=== PATIENT | female | born 1940 | race Asian ===

== ENCOUNTER 2025-05-14 10:16 | Inpatient (IN) | payer MEDICAID, OTHER ==
[~2025-05-14] VITALS: Ht 147.3 cm; Wt 50.9 kg
[2025-05-14] MEDS ORDERED: 0.9% SODIUM CHLORIDE 10 ML SYRINGE IVP PRN (10:30)
[2025-05-14] MEDS: SODIUM CHLORIDE 0.9% 1,500 ML IV ONE (10:44)
[2025-05-14] MEDS: CefTRIAXone 1 GM/DEXTROSE 50 ML IV ONE (10:45)
[2025-05-14 10:49] LABS: COVID AG,FIA SOURCE NASAL SWAB
[2025-05-14 10:49] LABS: PLATELET COUNT (AUTO) 246 K/uL (150-450); RED BLOOD CELL COUNT(AUTO) 4.28 MIL/uL (4.00-5.20); RED CELL DISTRIBUTION WIDTH 13.8 % (11.5-14.5); WHITE BLOOD COUNT (AUTO) 10.6 K/uL (4.5-11.0)
[2025-05-14 11:02] LABS: LACTIC ACID 3.7 mmol/L (0.4-2.0)
[2025-05-14 11:04] LABS: CALCIUM, TOTAL 8.9 mg/dL (8.8-10.5); CREATININE 2.58 mg/dL (0.60-1.30); GLOMERULAR FILTR. RATE CALC 18.0 mL/min (>60); SODIUM SERUM 138.0 mmol/L (136-145); UREA NITROGEN, BLOOD 85.0 mg/dL (7-18)
[2025-05-14 11:05] LABS: GLUCOSE,RANDOM 589.0 mg/dL (70-110)
[2025-05-14 11:06] LABS: BAND NEUTROPHILS % (MANUAL) 15 % (0-5); LYMPHOCYTES % (MANUAL) 8 % (22-44); MONOCYTES % (MANUAL) 4 % (2-9); SEGMENTED NEUTROPHILS % 73 % (40-70)
[2025-05-14 11:07] LABS: RBC MORPHOLOGY COMMENT NORMAL RBC MORPH
[2025-05-14 11:09] LABS: WBC MORPHOLOGY TOXIC GRANULATION
[2025-05-14 11:13] LABS: INFLUENZA TYPE A NEGATIVE FOR TYPE A (NEGATIVE); INFLUENZA TYPE B NEGATIVE FOR TYPE B (NEGATIVE); SARS-COV2 (COVID) ANTIGEN,FIA Negative (Negative)
[2025-05-14 11:22] LABS: ABG BASE EXCESS -3.5 mmol/L (-2.0-3.0); ABG CARBOXYHEMOGLOBIN 0.8 % (0.5-1.5); ABG HCO3 22.2 mmol/L (21.0-28.0); ABG METHEMOGLOBIN 0.3 % (0.0-1.5); ABG OXYGEN CONTENT 14.7 mL/dL (15.0-23.0); ABG OXYGEN SATURATION 90.8 % (94.0-98.0); ABG OXYHEMOGLOBIN 89.8 % (94.0-98.0); ABG PCO2 30 mmHg (32.0-45.0); ABG PH 7.453 (7.350-7.450); ABG TOTAL HEMOGLOBIN 11.6 G/dL (12.0-16.0); FRACTIONATED INSPIRED OXYGEN 32.0 % (21-100.0); PO2, ARTERIAL BG 61.1 mmHg (83.0-108.0); SOURCE, BLOOD GAS ARTERIAL; TEMPERATURE, FAHRENHEIT, BG 99.2 FAHREN (96.0-98.6)
[2025-05-14 11:24] LABS: SITE, BLOOD GAS LFT RADIAL
[2025-05-14 11:25] LABS: ABG A-A DIFF O2 132.0 mmHg (10-20.0); ALLEN TEST, BLOOD GAS Positive; FLOW, BLOOD GAS 3.00 L/min (0.00-15.00); O2 DEVICE,BLOOD GAS CANNULA (ROOM AIR); PATIENT RATE, BG 28.0 min.
[2025-05-14 12:05] LABS: APPEARANCE,URINE HAZY (CLEAR); GLUCOSE, URINE (UA) >=1000 mg/dL (NEGATIVE); LEUKOCYTE ESTERASE ,URINE MODERATE (NEGATIVE); NITRATE,URINE NEGATIVE (NEGATIVE); OCCULT BLOOD,URINE LARGE (NEGATIVE); SPECIFIC GRAVITIY, URINE 1.019 (1.003-1.030)
[2025-05-14 12:07] LABS: SULFOSALICYLIC ACID,URINE 2+ (Negative)
[2025-05-14] MEDS: SODIUM CHLORIDE 0.9% 1,000 ML IV ONE (12:32)
[2025-05-14 13:06] LABS: GLUCOMETER DEV NAME(LOC) ERT.7; GLUCOSE,POINT OF CARE 464 MG/DL (70-110)
[2025-05-14 16:16] VITALS: BP 116/58; PULSE 120; RESP 18; TEMP 100; TEMP 98; O2SAT 96
[2025-05-14] MEDS ORDERED: ONDANSETRON HCL 4 MG/2 ML VIAL IVP PRN (17:00)
[2025-05-14] MEDS ORDERED: DEXTROSE 50%-WATER 25 GM/50 ML SYRINGE IVP PRN (17:00)
[2025-05-14] MEDS ORDERED: BISACODYL 10 MG RECTAL RECTAL SUPPOSITORY PR PRN (17:00)
[2025-05-14] MEDS ORDERED: ZOLPIDEM TARTRATE 5 MG TABLET PO PRN (17:00)
[2025-05-14] MEDS ORDERED: MAGNESIUM HYDROXIDE SUSPENSION 30 ML UDCUP PO PRN (17:00)
[2025-05-14] MEDS ORDERED: INSULIN LISPRO 100 UNITS/ML SQ PRN ×2 (17:00→18:15)
[2025-05-14] MEDS ORDERED: MORPHINE SULFATE 4 MG/ML SYRINGE IVP PRN (17:00)
[2025-05-14] MEDS ORDERED: HYDROCODONE/ACETAMINOPHEN 5-325 MG TABLET PO PRN (17:00)
[2025-05-14] MEDS: POTASSIUM CHL 10 MEQ/WATER 50 ML IV SCH (17:48)
[2025-05-14] MEDS: SODIUM CHLORIDE 0.9% 1,000 ML IV SCH (17:48)
[2025-05-14 20:21] VITALS: BP 123/90; PULSE 133; RESP 20; TEMP 98.6; O2SAT 90
[2025-05-14] MEDS ORDERED: PIPERACILLIN/TAZO 3.375 GM/D5W 50 ML IV SCH (23:15)
[2025-05-14] MEDS: ACETAMINOPHEN 650 MG RECTAL SUPPOSITORY PR PRN (23:18)
[2025-05-14 23:35] LABS: ABG BASE EXCESS -4.8 mmol/L (-2.0-3.0); ABG CARBOXYHEMOGLOBIN 0.3 % (0.5-1.5); ABG HCO3 21.7 mmol/L (21.0-28.0); ABG METHEMOGLOBIN 0.3 % (0.0-1.5); ABG OXYGEN CONTENT 16.0 mL/dL (15.0-23.0); ABG OXYGEN SATURATION 98.2 % (94.0-98.0); ABG OXYHEMOGLOBIN 97.6 % (94.0-98.0); ABG PCO2 24 mmHg (32.0-45.0); ABG PH 7.501 (7.350-7.450); ABG TOTAL HEMOGLOBIN 11.5 G/dL (12.0-16.0); ALLEN TEST, BLOOD GAS Positive; FLOW, BLOOD GAS 10.00 L/min (0.00-15.00); FRACTIONATED INSPIRED OXYGEN 60.0 % (21-100.0); O2 DEVICE,BLOOD GAS OXYMIZER (ROOM AIR); PO2, ARTERIAL BG 112.6 mmHg (83.0-108.0); SITE, BLOOD GAS LFT RADIAL; SOURCE, BLOOD GAS ARTERIAL; TEMPERATURE, FAHRENHEIT, BG 98.6 FAHREN (96.0-98.6)
[2025-05-14] MEDS: VANCOMYCIN 1GM/WATER(PEG/NADA) 200 ML IV ONE (23:37)
[2025-05-14] MEDS: PIPERACILLIN SODIUM/TAZOBACTAM 2.25 GM in DEXTROSE 5%-WATER 50 ML IV SCH (23:52)
[2025-05-15] VITALS (7 sets, daily range): BP systolic 89–117; BP diastolic 43–72; PULSE 91–132; RESP 14–36; TEMP 98.6–99.7; O2SAT 92–100
[2025-05-15] MEDS: HEPARIN SODIUM,PORCINE 5,000 UNITS/ML VIAL SQ SCH (00:13)
[2025-05-15] MEDS ORDERED: VANCOMYCIN 1GM/WATER(PEG/NADA) 200 ML IV PRN (00:45)
[2025-05-15] MEDS: AMIODARONE HCL 150 MG in DEXTROSE 5%-WATER 97 ML IV ONE (01:13)
[2025-05-15] MEDS: AMIODARONE HCL 360 MG in DEXTROSE 5%-WATER 242.8 ML IV ONE (01:41)
[2025-05-15 02:10] LABS: GLUCOMETER DEV NAME(LOC) 5S.2D; GLUCOSE,POINT OF CARE 376 MG/DL (70-110)
[2025-05-15 02:10] LABS: GLUCOMETER DEV NAME(LOC) 5S.2D; GLUCOSE,POINT OF CARE 262 MG/DL (70-110)
[2025-05-15 02:10] LABS: GLUCOMETER DEV NAME(LOC) 5S.2D; GLUCOSE,POINT OF CARE 413 MG/DL (70-110)
[2025-05-15 04:58] LABS: PLATELET COUNT (AUTO) 198 K/uL (150-450); RED BLOOD CELL COUNT(AUTO) 3.85 MIL/uL (4.00-5.20); RED CELL DISTRIBUTION WIDTH 14.0 % (11.5-14.5); WHITE BLOOD COUNT (AUTO) 12.8 K/uL (4.5-11.0)
[2025-05-15 05:05] LABS: CALCIUM, TOTAL 8.7 mg/dL (8.8-10.5); CREATININE 1.66 mg/dL (0.60-1.30); GLOMERULAR FILTR. RATE CALC 29.0 mL/min (>60); SODIUM SERUM 145.0 mmol/L (136-145); UREA NITROGEN, BLOOD 74.0 mg/dL (7-18)
[2025-05-15 05:07] LABS: GLUCOSE,RANDOM 422.0 mg/dL (70-110)
[2025-05-15] MEDS: INSULIN LISPRO 100 UNITS/ML SQ PRN ×2 (05:11→17:32)
[2025-05-15 05:42] LABS: BAND NEUTROPHILS % (MANUAL) 18 % (0-5); LYMPHOCYTES % (MANUAL) 10 % (22-44); MONOCYTES % (MANUAL) 9 % (2-9); SEGMENTED NEUTROPHILS % 63 % (40-70)
[2025-05-15] MEDS: AMIODARONE HCL 540 MG in DEXTROSE 5%-WATER 250 ML IV ONE (08:25)
[2025-05-15] MEDS: PANTOPRAZOLE SODIUM 40 MG DR TABLET PO SCH (09:00)
[2025-05-15 09:41] LABS: GLUCOMETER DEV NAME(LOC) 5S.2D; GLUCOSE,POINT OF CARE 355 MG/DL (70-110)
[2025-05-15 09:41] LABS: GLUCOMETER DEV NAME(LOC) 5S.2D; GLUCOSE,POINT OF CARE 316 MG/DL (70-110)
[2025-05-15] MEDS ORDERED: CefTRIAXone 1 GM/DEXTROSE 50 ML IV SCH (10:00)
[2025-05-15] MEDS ORDERED: PHENYLEPHRINE 200 MG/D5%-WATER 250 ML IV PRN (11:00)
[2025-05-15] MEDS ORDERED: NALOXONE HCL 1 MG/ML 2 ML SYRINGE IVP PRN (11:00)
[2025-05-15] MEDS: AMIODARONE HCL 200 MG TABLET PO SCH (11:15)
[2025-05-15] MEDS: MORPHINE SULFATE 4 MG/ML SYRINGE IVP PRN (12:46)
[2025-05-15 13:36] LABS: ABG BASE EXCESS -4.9 mmol/L (-2.0-3.0); ABG CARBOXYHEMOGLOBIN 0.4 % (0.5-1.5); ABG HCO3 21.3 mmol/L (21.0-28.0); ABG METHEMOGLOBIN 0.3 % (0.0-1.5); ABG OXYGEN CONTENT 15.3 mL/dL (15.0-23.0); ABG OXYGEN SATURATION 94.9 % (94.0-98.0); ABG OXYHEMOGLOBIN 94.2 % (94.0-98.0); ABG PCO2 28 mmHg (32.0-45.0); ABG PH 7.449 (7.350-7.450); ABG TOTAL HEMOGLOBIN 11.5 G/dL (12.0-16.0); FLOW, BLOOD GAS 63.00 L/min (0.00-15.00); FRACTIONATED INSPIRED OXYGEN 44.0 % (21-100.0); O2 DEVICE,BLOOD GAS CANNULA (ROOM AIR); PATIENT RATE, BG 34.0 min.; PO2, ARTERIAL BG 75.8 mmHg (83.0-108.0); SITE, BLOOD GAS RT BRACHIAL; SOURCE, BLOOD GAS ARTERIAL; TEMPERATURE, FAHRENHEIT, BG 99.0 FAHREN (96.0-98.6)
[2025-05-15] MEDS: DIGOXIN 250 MCG/ML 2 ML AMP IVP ONE (14:18)
[2025-05-15] MEDS ORDERED: GLUCAGON,HUMAN RECOMBINANT 1 MG VIAL IM PRN (14:45)
[2025-05-15] MEDS: LORazepam 2 MG/ML VIAL IVP ONE (15:02)
[2025-05-15] MEDS: RINGERS SOLUTION,LACTATED 1,000 ML IV SCH (15:02)
[2025-05-15] MEDS ORDERED: SODIUM CHLORIDE 0.9% 250 ML IV ONE (17:36)
[2025-05-15 18:25] LABS: GLUCOMETER DEV NAME(LOC) ICUN.6; GLUCOSE,POINT OF CARE 366 MG/DL (70-110)
[2025-05-15] MEDS ORDERED: RINGERS SOLUTION,LACTATED 250 ML IV PRN (20:00)
[2025-05-15 20:54] LABS: ASPARTATE AMINOTRANSFERASE 57.0 U/L (15-37); TOTAL PROTEIN, SERUM 6.4 g/dL (6.4-8.2)
[2025-05-15] MEDS ORDERED: DEXTROSE 50%-WATER 25 GM/50 ML SYRINGE IVP PRN (22:45)
[2025-05-16] VITALS (11 sets, daily range): BP systolic 101–159; BP diastolic 49–72; PULSE 96–112; RESP 18–28; TEMP 97.5–99.7; O2SAT 93–100
[2025-05-16] MEDS: INSULIN LISPRO 100 UNITS/ML SQ PRN (00:07)
[2025-05-16] MEDS: INSULIN GLARGINE,HUM.REC.ANLOG 100 UNITS/ML SQ SCH (00:08)
[2025-05-16] MEDS ORDERED: AMIODARONE HCL 750 MG in DEXTROSE 5%-WATER 485 ML IV SCH (00:45)
[2025-05-16 04:20] LABS: GLUCOMETER DEV NAME(LOC) ICU.S7; GLUCOSE,POINT OF CARE 285 MG/DL (70-110)
[2025-05-16 05:56] LABS: GLUCOMETER DEV NAME(LOC) ICUN.6; GLUCOSE,POINT OF CARE 223 MG/DL (70-110)
[2025-05-16 07:28] LABS: PLATELET COUNT (AUTO) 181 K/uL (150-450); RED BLOOD CELL COUNT(AUTO) 3.91 MIL/uL (4.00-5.20); RED CELL DISTRIBUTION WIDTH 13.9 % (11.5-14.5); WHITE BLOOD COUNT (AUTO) 11.3 K/uL (4.5-11.0)
[2025-05-16 07:38] LABS: PHOSPHORUS 1.7 mg/dL (2.5-4.9)
[2025-05-16 07:42] LABS: CALCIUM, TOTAL 8.9 mg/dL (8.8-10.5); CREATININE 1.19 mg/dL (0.60-1.30); GLOMERULAR FILTR. RATE CALC 43.0 mL/min (>60); GLUCOSE,RANDOM 179.0 mg/dL (70-110); UREA NITROGEN, BLOOD 53.0 mg/dL (7-18)
[2025-05-16 07:47] LABS: SODIUM SERUM 154.0 mmol/L (136-145)
[2025-05-16] MEDS: ALBUTEROL SULFATE 2.5 MG/0.5 ML NEB SOLUTION NEB PRN (08:17)
[2025-05-16] MEDS: IPRATROPIUM BROMIDE 0.5 MG/2.5 ML NEB SOLUTION NEB PRN (08:17)
[2025-05-16] MEDS: MIDODRINE HCL 2.5 MG TABLET PO SCH (08:40)
[2025-05-16] MEDS: VANCOMYCIN 750 MG/WATER(PEG) 150 ML IV SCH (08:40)
[2025-05-16] MEDS ORDERED: MAGNESIUM SULFATE 2 GM/WATER 50 ML IV PRN (10:45)
[2025-05-16] MEDS ORDERED: MAGNESIUM SULFATE 4 GM/WATER 100 ML IV PRN (10:45)
[2025-05-16] MEDS ORDERED: MAGNESIUM OXIDE 400 MG TABLET PO PRN (10:45)
[2025-05-16] MEDS: PIPERACILLIN SODIUM/TAZOBACTAM 2.25 GM in DEXTROSE 5%-WATER 50 ML IV SCH (11:38)
[2025-05-16] MEDS: DEXTROSE 5%-WATER 1,000 ML IV SCH (11:39)
[2025-05-16] MEDS: POTASSIUM CHL 10 MEQ/WATER 50 ML IV PRN (11:39)
[2025-05-16] MEDS: POTASSIUM PHOSPHATE,MONOBASIC 500 MG TABLET PO ONE (12:06)
[2025-05-16] MEDS: POTASSIUM CHL 10 MEQ/WATER 50 ML IV SCH (16:30)
[2025-05-17] VITALS (13 sets, daily range): BP systolic 109–162; BP diastolic 53–82; PULSE 91–119; RESP 17–48; TEMP 97.5–98.4; O2SAT 90–100
[2025-05-17 07:08] LABS: CALCIUM, TOTAL 8.9 mg/dL (8.8-10.5); CREATININE 1.37 mg/dL (0.60-1.30); GLOMERULAR FILTR. RATE CALC 37.0 mL/min (>60); GLUCOSE,RANDOM 245.0 mg/dL (70-110); SODIUM SERUM 156.0 mmol/L (136-145); UREA NITROGEN, BLOOD 47.0 mg/dL (7-18)
[2025-05-17 07:34] LABS: % IRON SATURATION 23.9 % (22-44); IRON, SERUM 22.0 mcg/dL (50-175)
[2025-05-17 07:37] LABS: PHOSPHORUS 3.4 mg/dL (2.5-4.9)
[2025-05-17] MEDS ORDERED: ETOMIDATE 2 MG/ML 10 ML VIAL IV ONE (08:36)
[2025-05-17] MEDS ORDERED: ROCURONIUM BROMIDE 10 MG/ML 5 ML VIAL IV ONE (08:36)
[2025-05-17] MEDS: POTASSIUM CHL 10 MEQ/WATER 50 ML IV SCH (11:23)
[2025-05-17] MEDS: NAFCILLIN SODIUM 2 GM in DEXTROSE 5%-WATER 100 ML IV SCH (16:36)
[2025-05-18] VITALS (16 sets, daily range): BP systolic 85–159; BP diastolic 35–74; PULSE 66–131; RESP 22–52; TEMP 98.1–99.7; O2SAT 93–100
[2025-05-18] MEDS: ETOMIDATE 2 MG/ML 10 ML VIAL IVP ONE (00:59)
[2025-05-18] MEDS: ROCURONIUM BROMIDE 10 MG/ML 5 ML VIAL IVP ONE (01:01)
[2025-05-18] MEDS ORDERED: SODIUM CHLORIDE 0.9% 250 ML IV ONE (01:52)
[2025-05-18] MEDS ORDERED: PROPOFOL 1000 MG/ISO-OSM 100 ML ONE (01:57)
[2025-05-18] MEDS: FentaNYL CIT 1000MCG/0.9% NACL 100 ML IV PRN (02:19)
[2025-05-18] MEDS: PROPOFOL 1000 MG/ISO-OSM 100 ML IV PRN (02:20)
[2025-05-18 02:26] LABS: ABG BASE EXCESS -4.0 mmol/L (-2.0-3.0); ABG CARBOXYHEMOGLOBIN 0.3 % (0.5-1.5); ABG HCO3 21.4 mmol/L (21.0-28.0); ABG METHEMOGLOBIN 0.0 % (0.0-1.5); ABG OXYGEN CONTENT 16.3 mL/dL (15.0-23.0); ABG OXYGEN SATURATION 99.6 % (94.0-98.0); ABG OXYHEMOGLOBIN 99.3 % (94.0-98.0); ABG PCO2 41 mmHg (32.0-45.0); ABG PH 7.346 (7.350-7.450); ABG TOTAL HEMOGLOBIN 10.9 G/dL (12.0-16.0); FRACTIONATED INSPIRED OXYGEN 100.0 % (21-100.0); SOURCE, BLOOD GAS ARTERIAL; TEMPERATURE, FAHRENHEIT, BG 98.3 FAHREN (96.0-98.6)
[2025-05-18 02:27] LABS: ALLEN TEST, BLOOD GAS Positive; PO2, ARTERIAL BG 408.7 mmHg (83.0-108.0); SITE, BLOOD GAS LFT BRACHIAL
[2025-05-18 02:28] LABS: ABG A-A DIFF O2 264.3 mmHg (10-20.0); O2 DEVICE,BLOOD GAS VENT (ROOM AIR); PEEP,BG 5 cm H2O; SET RATE, BG 22.0 min.; VT, ABG 350 ml
[2025-05-18 05:41] LABS: GLUCOMETER DEV NAME(LOC) ICUN.6; GLUCOSE,POINT OF CARE 228 MG/DL (70-110)
[2025-05-18 05:54] LABS: PLATELET COUNT (AUTO) 164 K/uL (150-450); RED BLOOD CELL COUNT(AUTO) 3.81 MIL/uL (4.00-5.20); RED CELL DISTRIBUTION WIDTH 14.7 % (11.5-14.5); WHITE BLOOD COUNT (AUTO) 9.6 K/uL (4.5-11.0)
[2025-05-18 06:04] LABS: ASPARTATE AMINOTRANSFERASE 33.0 U/L (15-37); CALCIUM, TOTAL 8.1 mg/dL (8.8-10.5); CREATININE 1.24 mg/dL (0.60-1.30); GLOMERULAR FILTR. RATE CALC 41.0 mL/min (>60); GLUCOSE,RANDOM 257.0 mg/dL (70-110); PHOSPHORUS 5.9 mg/dL (2.5-4.9); SODIUM SERUM 155.0 mmol/L (136-145); TOTAL PROTEIN, SERUM 6.2 g/dL (6.4-8.2); UREA NITROGEN, BLOOD 48.0 mg/dL (7-18)
[2025-05-18] MEDS ORDERED: DEXMEDETOMIDINE 400 MCG/NS 100 ML IV PRN (09:45)
[2025-05-18] MEDS: RINGERS SOLUTION,LACTATED 500 ML IV ONE ×2 (09:58→19:38)
[2025-05-18] MEDS: DEXMEDETOMIDINE 400 MCG/NS 100 ML IV PRN (09:59)
[2025-05-18 10:43] LABS: GLUCOMETER DEV NAME(LOC) 5N.1D; GLUCOSE,POINT OF CARE 233 MG/DL (70-110)
[2025-05-18 10:43] LABS: GLUCOMETER DEV NAME(LOC) 5N.1D; GLUCOSE,POINT OF CARE 254 MG/DL (70-110)
[2025-05-18 10:43] LABS: GLUCOMETER DEV NAME(LOC) 5N.1D; GLUCOSE,POINT OF CARE 269 MG/DL (70-110)
[2025-05-18 10:46] LABS: GLUCOMETER DEV NAME(LOC) 5S.1D; GLUCOSE,POINT OF CARE 229 MG/DL (70-110)
[2025-05-18 10:46] LABS: GLUCOMETER DEV NAME(LOC) 5S.1D; GLUCOSE,POINT OF CARE 266 MG/DL (70-110)
[2025-05-18 10:46] LABS: GLUCOMETER DEV NAME(LOC) 5S.1D; GLUCOSE,POINT OF CARE 232 MG/DL (70-110)
[2025-05-18] MEDS: DEXTROSE 50%-WATER 25 GM in WATER FOR INJECTION,STERILE 950 ML IV SCH (13:32)
[2025-05-18 14:06] LABS: GLUCOMETER DEV NAME(LOC) ICU.S7; GLUCOSE,POINT OF CARE 223 MG/DL (70-110)
[2025-05-18 18:40] LABS: GLUCOMETER DEV NAME(LOC) ICU.S7; GLUCOSE,POINT OF CARE 138 MG/DL (70-110)
[2025-05-18] MEDS: NOREPINEPHRINE 8 MG/0.9 % NACL 250 ML IV PRN (21:09)
[2025-05-18 21:30] LABS: GLUCOMETER DEV NAME(LOC) ICU.S7; GLUCOSE,POINT OF CARE 113 MG/DL (70-110)
[2025-05-19] VITALS (14 sets, daily range): BP systolic 95–146; BP diastolic 42–68; PULSE 70–84; RESP 21–27; TEMP 98.2–100.2; O2SAT 99–100
[2025-05-19 03:36] LABS: GLUCOMETER DEV NAME(LOC) ICUN.6; GLUCOSE,POINT OF CARE 147 MG/DL (70-110)
[2025-05-19 06:22] LABS: ASPARTATE AMINOTRANSFERASE 36.0 U/L (15-37); C-REACTIVE PROTEIN QUANT 13.03 mg/dL (0.00-0.30); CALCIUM, TOTAL 7.0 mg/dL (8.8-10.5); CREATININE 2.01 mg/dL (0.60-1.30); GLOMERULAR FILTR. RATE CALC 24.0 mL/min (>60); GLUCOSE,RANDOM 173.0 mg/dL (70-110); PHOSPHORUS 5.1 mg/dL (2.5-4.9); SODIUM SERUM 142.0 mmol/L (136-145); TOTAL PROTEIN, SERUM 5.6 g/dL (6.4-8.2); UREA NITROGEN, BLOOD 59.0 mg/dL (7-18)
[2025-05-19 07:46] LABS: GLUCOMETER DEV NAME(LOC) ICU.S7; GLUCOSE,POINT OF CARE 158 MG/DL (70-110)
[2025-05-19] MEDS: ACETAMINOPHEN 325 MG TABLET PO PRN (07:58)
[2025-05-19] MEDS ORDERED: RINGERS SOLUTION,LACTATED 1,000 ML IV SCH (10:15)
[2025-05-19] MEDS: ALBUMIN HUMAN 25%-25GM/100ML 100 ML IV SCH (12:24)
[2025-05-19] MEDS ORDERED: SODIUM CHLORIDE 0.9% 500 ML IV ONE (13:59)
[2025-05-19 18:01] LABS: GLUCOMETER DEV NAME(LOC) ICUN.6; GLUCOSE,POINT OF CARE 144 MG/DL (70-110)
[2025-05-19] MEDS: PHENYLEPHRINE 200 MG/D5%-WATER 250 ML IV PRN (18:53)
[2025-05-19 23:50] LABS: GLUCOMETER DEV NAME(LOC) ICUN.6; GLUCOSE,POINT OF CARE 170 MG/DL (70-110)
[2025-05-19 23:50] LABS: GLUCOMETER DEV NAME(LOC) ICUN.6; GLUCOSE,POINT OF CARE 156 MG/DL (70-110)
[2025-05-20] VITALS (14 sets, daily range): BP systolic 110–143; BP diastolic 35–75; PULSE 71–81; RESP 21–25; TEMP 96.9–99.4; O2SAT 100
[2025-05-20 06:20] LABS: PLATELET COUNT (AUTO) 239 K/uL (150-450); RED BLOOD CELL COUNT(AUTO) 3.56 MIL/uL (4.00-5.20); RED CELL DISTRIBUTION WIDTH 14.7 % (11.5-14.5); WHITE BLOOD COUNT (AUTO) 20.9 K/uL (4.5-11.0)
[2025-05-20 06:30] LABS: GLUCOMETER DEV NAME(LOC) ICUN.6; GLUCOSE,POINT OF CARE 161 MG/DL (70-110)
[2025-05-20 06:35] LABS: ASPARTATE AMINOTRANSFERASE 23.0 U/L (15-37); CALCIUM, TOTAL 6.9 mg/dL (8.8-10.5); CREATININE 2.41 mg/dL (0.60-1.30); GLOMERULAR FILTR. RATE CALC 19.0 mL/min (>60); GLUCOSE,RANDOM 183.0 mg/dL (70-110); SODIUM SERUM 138.0 mmol/L (136-145); TOTAL PROTEIN, SERUM 6.2 g/dL (6.4-8.2); UREA NITROGEN, BLOOD 60.0 mg/dL (7-18)
[2025-05-20] MEDS ORDERED: RINGERS SOLUTION,LACTATED 1,000 ML IV SCH (10:30)
[2025-05-20] MEDS ORDERED: ALBUMIN HUMAN 25%-25GM/100ML 100 ML IV SCH (11:00)
[2025-05-20] MEDS ORDERED: SODIUM CHLORIDE 0.9% 250 ML IV ONE (11:49)
[2025-05-20] MEDS: SODIUM CHLORIDE 0.9% 1,000 ML IV SCH (11:51)
[2025-05-20] MEDS: VASOPRESSIN 40 UNITS in DEXTROSE 5%-WATER 98 ML IV PRN (12:16)
[2025-05-20] MEDS: POTASSIUM CHL 10 MEQ/WATER 50 ML IV SCH (12:41)
[2025-05-20 13:01] LABS: GLUCOMETER DEV NAME(LOC) ICU.S7; GLUCOSE,POINT OF CARE 153 MG/DL (70-110)
[2025-05-20 17:45] LABS: GLUCOMETER DEV NAME(LOC) ICU.S7; GLUCOSE,POINT OF CARE 179 MG/DL (70-110)
[2025-05-20 21:36] LABS: GLUCOMETER DEV NAME(LOC) ICUN.6; GLUCOSE,POINT OF CARE 178 MG/DL (70-110)
[2025-05-21] VITALS (12 sets, daily range): BP systolic 120–148; BP diastolic 27–38; PULSE 65–91; RESP 18–31; TEMP 98.2–99.4; O2SAT 99–100
[2025-05-21 00:20] LABS: GLUCOMETER DEV NAME(LOC) ICUN.6; GLUCOSE,POINT OF CARE 183 MG/DL (70-110)
[2025-05-21 05:31] LABS: PLATELET COUNT (AUTO) 185 K/uL (150-450); RED BLOOD CELL COUNT(AUTO) 2.96 MIL/uL (4.00-5.20); RED CELL DISTRIBUTION WIDTH 14.7 % (11.5-14.5); WHITE BLOOD COUNT (AUTO) 16.2 K/uL (4.5-11.0)
[2025-05-21 05:53] LABS: ASPARTATE AMINOTRANSFERASE 17.0 U/L (15-37); C-REACTIVE PROTEIN QUANT 14.91 mg/dL (0.00-0.30); CALCIUM, TOTAL 6.7 mg/dL (8.8-10.5); CREATININE 2.6 mg/dL (0.60-1.30); GLOMERULAR FILTR. RATE CALC 17.0 mL/min (>60); GLUCOSE,RANDOM 223.0 mg/dL (70-110); SODIUM SERUM 138.0 mmol/L (136-145); TOTAL PROTEIN, SERUM 6.0 g/dL (6.4-8.2); UREA NITROGEN, BLOOD 54.0 mg/dL (7-18)
[2025-05-21 06:30] LABS: GLUCOMETER DEV NAME(LOC) ICU.S7; GLUCOSE,POINT OF CARE 188 MG/DL (70-110)
[2025-05-21 12:40] LABS: GLUCOMETER DEV NAME(LOC) ICUN.6; GLUCOSE,POINT OF CARE 210 MG/DL (70-110)
[2025-05-21 19:15] LABS: GLUCOMETER DEV NAME(LOC) ICU.S7; GLUCOSE,POINT OF CARE 184 MG/DL (70-110)
[2025-05-21 20:26] LABS: GLUCOMETER DEV NAME(LOC) ICU.S7; GLUCOSE,POINT OF CARE 155 MG/DL (70-110)
[2025-05-21] MEDS ORDERED: SODIUM CHLORIDE 0.9% 250 ML IV ONE (23:51)
[2025-05-22] VITALS (14 sets, daily range): BP systolic 87–138; BP diastolic 33–60; PULSE 73–90; RESP 18–27; TEMP 96.9–98.9; O2SAT 97–100
[2025-05-22 05:39] LABS: PLATELET COUNT (AUTO) 258 K/uL (150-450); RED BLOOD CELL COUNT(AUTO) 3.31 MIL/uL (4.00-5.20); RED CELL DISTRIBUTION WIDTH 15.2 % (11.5-14.5); WHITE BLOOD COUNT (AUTO) 16.3 K/uL (4.5-11.0)
[2025-05-22 05:53] LABS: ASPARTATE AMINOTRANSFERASE 18 U/L (15-37); CALCIUM, TOTAL 6.8 mg/dL (8.8-10.5); CREATININE 2.27 mg/dL (0.60-1.30); GLOMERULAR FILTR. RATE CALC 20 mL/min (>60); GLUCOSE,RANDOM 240 mg/dL (70-110); SODIUM SERUM 138 mmol/L (136-145); TOTAL PROTEIN, SERUM 5.7 g/dL (6.4-8.2); UREA NITROGEN, BLOOD 48 mg/dL (7-18)
[2025-05-22 06:13] LABS: LACTIC ACID 0.6 mmol/L (0.4-2.0)
[2025-05-22 06:35] LABS: GLUCOMETER DEV NAME(LOC) ICU.S7; GLUCOSE,POINT OF CARE 189 MG/DL (70-110)
[2025-05-22] MEDS: FUROSEMIDE 40 MG/4 ML VIAL IVP ONE (11:18)
[2025-05-22 16:20] LABS: GLUCOMETER DEV NAME(LOC) ICU.S7; GLUCOSE,POINT OF CARE 195 MG/DL (70-110)
[2025-05-22 19:05] LABS: GLUCOMETER DEV NAME(LOC) ICU.S7; GLUCOSE,POINT OF CARE 152 MG/DL (70-110)
[2025-05-22] MEDS: FUROSEMIDE 40 MG/4 ML VIAL IVP SCH (20:44)
[2025-05-23] VITALS (16 sets, daily range): BP systolic 105–134; BP diastolic 56–64; PULSE 73–106; RESP 18–27; TEMP 98.5–99.4; O2SAT 98–100
[2025-05-23 05:36] LABS: GLUCOMETER DEV NAME(LOC) ICUN.6; GLUCOSE,POINT OF CARE 204 MG/DL (70-110)
[2025-05-23 06:10] LABS: PLATELET COUNT (AUTO) 231 K/uL (150-450); RED BLOOD CELL COUNT(AUTO) 2.80 MIL/uL (4.00-5.20); RED CELL DISTRIBUTION WIDTH 15.0 % (11.5-14.5); WHITE BLOOD COUNT (AUTO) 14.8 K/uL (4.5-11.0)
[2025-05-23 06:20] LABS: ASPARTATE AMINOTRANSFERASE 20.0 U/L (15-37); CALCIUM, TOTAL 7.7 mg/dL (8.8-10.5); CREATININE 2.22 mg/dL (0.60-1.30); GLOMERULAR FILTR. RATE CALC 21.0 mL/min (>60); GLUCOSE,RANDOM 229.0 mg/dL (70-110); SODIUM SERUM 138.0 mmol/L (136-145); TOTAL PROTEIN, SERUM 5.9 g/dL (6.4-8.2); UREA NITROGEN, BLOOD 43.0 mg/dL (7-18)
[2025-05-23] MEDS ORDERED: SODIUM CHLORIDE 0.9% 250 ML IV ONE (09:50)
[2025-05-23] MEDS: POTASSIUM CHL 10 MEQ/WATER 50 ML IV SCH (13:50)
[2025-05-23] MEDS: MIDODRINE HCL 5 MG TABLET PO SCH (16:15)
[2025-05-23 19:46] LABS: GLUCOMETER DEV NAME(LOC) ICUN.6; GLUCOSE,POINT OF CARE 203 MG/DL (70-110)
[2025-05-23 19:46] LABS: GLUCOMETER DEV NAME(LOC) ICU.S7; GLUCOSE,POINT OF CARE 173 MG/DL (70-110)
[2025-05-23 22:11] LABS: GLUCOMETER DEV NAME(LOC) ICU.S7; GLUCOSE,POINT OF CARE 166 MG/DL (70-110)
[2025-05-24] VITALS (15 sets, daily range): BP systolic 106–138; BP diastolic 49–69; PULSE 83–115; RESP 16–29; TEMP 99–99.7; O2SAT 99–100
[2025-05-24 00:56] LABS: GLUCOMETER DEV NAME(LOC) ICU.S7; GLUCOSE,POINT OF CARE 206 MG/DL (70-110)
[2025-05-24 06:17] LABS: PLATELET COUNT (AUTO) 289 K/uL (150-450); RED BLOOD CELL COUNT(AUTO) 2.69 MIL/uL (4.00-5.20); RED CELL DISTRIBUTION WIDTH 15.3 % (11.5-14.5); WHITE BLOOD COUNT (AUTO) 13.3 K/uL (4.5-11.0)
[2025-05-24 06:26] LABS: GLUCOMETER DEV NAME(LOC) ICUN.6; GLUCOSE,POINT OF CARE 156 MG/DL (70-110)
[2025-05-24 06:32] LABS: ASPARTATE AMINOTRANSFERASE 15.0 U/L (15-37); CALCIUM, TOTAL 8.5 mg/dL (8.8-10.5); CREATININE 2.22 mg/dL (0.60-1.30); GLOMERULAR FILTR. RATE CALC 21.0 mL/min (>60); GLUCOSE,RANDOM 184.0 mg/dL (70-110); SODIUM SERUM 138.0 mmol/L (136-145); TOTAL PROTEIN, SERUM 6.3 g/dL (6.4-8.2); UREA NITROGEN, BLOOD 44.0 mg/dL (7-18)
[2025-05-24 11:15] LABS: ABG BASE EXCESS -4.7 mmol/L (-2.0-3.0); ABG CARBOXYHEMOGLOBIN 0.4 % (0.5-1.5); ABG HCO3 21.0 mmol/L (21.0-28.0); ABG METHEMOGLOBIN 0.3 % (0.0-1.5); ABG OXYGEN CONTENT 13.7 mL/dL (15.0-23.0); ABG OXYGEN SATURATION 93.1 % (94.0-98.0); ABG OXYHEMOGLOBIN 92.4 % (94.0-98.0); ABG PCO2 35 mmHg (32.0-45.0); ABG PH 7.387 (7.350-7.450); ABG TOTAL HEMOGLOBIN 10.5 G/dL (12.0-16.0); ALLEN TEST, BLOOD GAS Positive; FRACTIONATED INSPIRED OXYGEN 30.0 % (21-100.0); PO2, ARTERIAL BG 63.8 mmHg (83.0-108.0); SITE, BLOOD GAS RT RADIAL; SOURCE, BLOOD GAS ARTERIAL; TEMPERATURE, FAHRENHEIT, BG 98.9 FAHREN (96.0-98.6)
[2025-05-24 11:16] LABS: ABG A-A DIFF O2 109.4 mmHg (10-20.0); O2 DEVICE,BLOOD GAS VENTILATOR (ROOM AIR); PEEP,BG 0 cm H2O; PRESSURE SUPPORT, BG 8 cm H2O; SPONTANEOUS VT, BG 542 ml; VENT MODE, BG CPAP (ROOM AIR)
[2025-05-24 16:56] LABS: GLUCOMETER DEV NAME(LOC) ICUN.6; GLUCOSE,POINT OF CARE 157 MG/DL (70-110)
[2025-05-24] MEDS: POTASSIUM CHLORIDE 10% 40 MEQ/30 ML LIQUID UDCUP PO ONE (17:26)
[2025-05-24 20:00] LABS: GLUCOMETER DEV NAME(LOC) ICU.S7; GLUCOSE,POINT OF CARE 199 MG/DL (70-110)
[2025-05-24 20:46] LABS: GLUCOMETER DEV NAME(LOC) ICU.S7; GLUCOSE,POINT OF CARE 175 MG/DL (70-110)
[2025-05-24] MEDS ORDERED: SODIUM CHLORIDE 0.9% 250 ML IV ONE (23:52)
[2025-05-25] VITALS (15 sets, daily range): BP systolic 117–161; BP diastolic 57–75; PULSE 88–116; RESP 21–29; TEMP 97–99.3; O2SAT 96–100
[2025-05-25 05:21] LABS: GLUCOMETER DEV NAME(LOC) ICUN.6; GLUCOSE,POINT OF CARE 152 MG/DL (70-110)
[2025-05-25 05:50] LABS: GLUCOMETER DEV NAME(LOC) ICUN.6; GLUCOSE,POINT OF CARE 156 MG/DL (70-110)
[2025-05-25 06:06] LABS: PLATELET COUNT (AUTO) 319 K/uL (150-450); RED BLOOD CELL COUNT(AUTO) 2.63 MIL/uL (4.00-5.20); RED CELL DISTRIBUTION WIDTH 15.1 % (11.5-14.5); WHITE BLOOD COUNT (AUTO) 13.2 K/uL (4.5-11.0)
[2025-05-25 06:19] LABS: CREATININE 2.25 mg/dL (0.60-1.30); GLOMERULAR FILTR. RATE CALC 21.0 mL/min (>60); GLUCOSE,RANDOM 197.0 mg/dL (70-110); SODIUM SERUM 138.0 mmol/L (136-145); UREA NITROGEN, BLOOD 45.0 mg/dL (7-18)
[2025-05-25 06:20] LABS: ASPARTATE AMINOTRANSFERASE 16.0 U/L (15-37); CALCIUM, TOTAL 8.7 mg/dL (8.8-10.5); TOTAL PROTEIN, SERUM 6.4 g/dL (6.4-8.2)
[2025-05-25] MEDS: POTASSIUM CHL 10 MEQ/WATER 50 ML IV ONE (09:22)
[2025-05-25 10:18] LABS: ABG BASE EXCESS -2.8 mmol/L (-2.0-3.0); ABG CARBOXYHEMOGLOBIN 0.7 % (0.5-1.5); ABG HCO3 22.4 mmol/L (21.0-28.0); ABG METHEMOGLOBIN 0.3 % (0.0-1.5); ABG OXYGEN CONTENT 10.5 mL/dL (15.0-23.0); ABG OXYGEN SATURATION 91.6 % (94.0-98.0); ABG OXYHEMOGLOBIN 90.7 % (94.0-98.0); ABG PCO2 29 mmHg (32.0-45.0); ABG PH 7.470 (7.350-7.450); ABG TOTAL HEMOGLOBIN 8.2 G/dL (12.0-16.0); FRACTIONATED INSPIRED OXYGEN 30.0 % (21-100.0); SOURCE, BLOOD GAS ARTERIAL; TEMPERATURE, FAHRENHEIT, BG 97.7 FAHREN (96.0-98.6)
[2025-05-25 10:19] LABS: ABG A-A DIFF O2 126.0 mmHg (10-20.0); ALLEN TEST, BLOOD GAS Positive; CPAP, BG 0 cm H2O; O2 DEVICE,BLOOD GAS VENTILATOR (ROOM AIR); PATIENT RATE, BG 28.0 min.; PO2, ARTERIAL BG 53.4 mmHg (83.0-108.0); PRESSURE SUPPORT, BG 8 cm H2O; SITE, BLOOD GAS LFT RADIAL; SPONTANEOUS VT, BG 388 ml; VENT MODE, BG CPAP (ROOM AIR)
[2025-05-25 17:17] LABS: CALCIUM, TOTAL 9.1 mg/dL (8.8-10.5); CREATININE 2.18 mg/dL (0.60-1.30); GLOMERULAR FILTR. RATE CALC 21.0 mL/min (>60); GLUCOSE,RANDOM 175.0 mg/dL (70-110); SODIUM SERUM 136.0 mmol/L (136-145); UREA NITROGEN, BLOOD 45.0 mg/dL (7-18)
[2025-05-25 17:26] LABS: GLUCOMETER DEV NAME(LOC) ICUN.6; GLUCOSE,POINT OF CARE 299 MG/DL (70-110)
[2025-05-25 17:32] LABS: PHOSPHORUS 4.2 mg/dL (2.5-4.9)
[2025-05-25 20:50] LABS: GLUCOMETER DEV NAME(LOC) ICU.S7; GLUCOSE,POINT OF CARE 180 MG/DL (70-110)
[2025-05-25 21:10] LABS: GLUCOMETER DEV NAME(LOC) ICUN.6; GLUCOSE,POINT OF CARE 181 MG/DL (70-110)
[2025-05-26] VITALS (14 sets, daily range): BP systolic 103–150; BP diastolic 47–72; PULSE 89–114; RESP 16–29; TEMP 97.7–99.3; O2SAT 97–100
[2025-05-26 05:18] LABS: PLATELET COUNT (AUTO) 369 K/uL (150-450); RED BLOOD CELL COUNT(AUTO) 2.66 MIL/uL (4.00-5.20); RED CELL DISTRIBUTION WIDTH 15.3 % (11.5-14.5); WHITE BLOOD COUNT (AUTO) 11.9 K/uL (4.5-11.0)
[2025-05-26 05:45] LABS: ASPARTATE AMINOTRANSFERASE 12.0 U/L (15-37); C-REACTIVE PROTEIN QUANT 11.18 mg/dL (0.00-0.30); CALCIUM, TOTAL 9.3 mg/dL (8.8-10.5); CREATININE 2.12 mg/dL (0.60-1.30); GLOMERULAR FILTR. RATE CALC 22.0 mL/min (>60); GLUCOSE,RANDOM 187.0 mg/dL (70-110); PHOSPHORUS 4.1 mg/dL (2.5-4.9); SODIUM SERUM 138.0 mmol/L (136-145); TOTAL PROTEIN, SERUM 7.2 g/dL (6.4-8.2); UREA NITROGEN, BLOOD 43.0 mg/dL (7-18)
[2025-05-26 06:26] LABS: GLUCOMETER DEV NAME(LOC) ICUN.6; GLUCOSE,POINT OF CARE 132 MG/DL (70-110)
[2025-05-26 11:40] LABS: GLUCOMETER DEV NAME(LOC) ICU.S7; GLUCOSE,POINT OF CARE 182 MG/DL (70-110)
[2025-05-26] MEDS: POTASSIUM CHL 10 MEQ/WATER 50 ML IV SCH (12:17)
[2025-05-26] MEDS: MAGNESIUM SULFATE 2 GM/WATER 50 ML IV ONE (12:18)
[2025-05-26 13:56] LABS: GLUCOMETER DEV NAME(LOC) ICUN.6; GLUCOSE,POINT OF CARE 192 MG/DL (70-110)
[2025-05-26 14:56] LABS: GLUCOMETER DEV NAME(LOC) ICUN.6; GLUCOSE,POINT OF CARE 206 MG/DL (70-110)
[2025-05-26] MEDS ORDERED: SODIUM CHLORIDE 0.9% 250 ML IV ONE (16:11)
[2025-05-26 18:09] LABS: CALCIUM, TOTAL 9.6 mg/dL (8.8-10.5); CREATININE 2.18 mg/dL (0.60-1.30); GLOMERULAR FILTR. RATE CALC 21.0 mL/min (>60); GLUCOSE,RANDOM 174.0 mg/dL (70-110); SODIUM SERUM 137.0 mmol/L (136-145); UREA NITROGEN, BLOOD 41.0 mg/dL (7-18)
[2025-05-26 18:13] LABS: PHOSPHORUS 4.1 mg/dL (2.5-4.9)
[2025-05-26 18:25] LABS: GLUCOMETER DEV NAME(LOC) ICUN.6; GLUCOSE,POINT OF CARE 152 MG/DL (70-110)
[2025-05-26 21:38] LABS: C.DIFF GDH ANTIGEN, Stool Negative (Negative)
[2025-05-26 21:40] LABS: C.DIFF TOXINS A&B, Stool Negative (Negative)
[2025-05-27] VITALS (20 sets, daily range): BP systolic 95–119; BP diastolic 42–66; PULSE 73–107; RESP 2–26; TEMP 97.5–98.9; O2SAT 92–99
[2025-05-27 00:36] LABS: GLUCOMETER DEV NAME(LOC) ICUN.6; GLUCOSE,POINT OF CARE 71 MG/DL (70-110)
[2025-05-27 00:51] LABS: GLUCOMETER DEV NAME(LOC) ICUN.6; GLUCOSE,POINT OF CARE 117 MG/DL (70-110)
[2025-05-27 05:32] LABS: PLATELET COUNT (AUTO) 340 K/uL (150-450); RED BLOOD CELL COUNT(AUTO) 2.25 MIL/uL (4.00-5.20); RED CELL DISTRIBUTION WIDTH 15.5 % (11.5-14.5); WHITE BLOOD COUNT (AUTO) 8.1 K/uL (4.5-11.0)
[2025-05-27 05:40] LABS: CALCIUM, TOTAL 9.4 mg/dL (8.8-10.5); CREATININE 2.05 mg/dL (0.60-1.30); GLOMERULAR FILTR. RATE CALC 23.0 mL/min (>60); GLUCOSE,RANDOM 238.0 mg/dL (70-110); SODIUM SERUM 135.0 mmol/L (136-145); UREA NITROGEN, BLOOD 41.0 mg/dL (7-18)
[2025-05-27 05:44] LABS: PHOSPHORUS 4.4 mg/dL (2.5-4.9)
[2025-05-27 06:41] LABS: GLUCOMETER DEV NAME(LOC) ICUN.6; GLUCOSE,POINT OF CARE 201 MG/DL (70-110)
[2025-05-27] MEDS: POTASSIUM CHL 10 MEQ/WATER 50 ML IV SCH (06:45)
[2025-05-27] MEDS: BENZOCAINE 20% 50 MCG/SPRAY 57 GM TP ONE (09:51)
[2025-05-27 12:49] LABS: ABG A-A DIFF O2 98.7 mmHg (10-20.0); ABG BASE EXCESS 0.6 mmol/L (-2.0-3.0); ABG CARBOXYHEMOGLOBIN 1.3 % (0.5-1.5); ABG HCO3 25.0 mmol/L (21.0-28.0); ABG METHEMOGLOBIN 0.3 % (0.0-1.5); ABG OXYGEN CONTENT 9.6 mL/dL (15.0-23.0); ABG OXYGEN SATURATION 94.9 % (94.0-98.0); ABG OXYHEMOGLOBIN 93.4 % (94.0-98.0); ABG PCO2 35 mmHg (32.0-45.0); ABG PH 7.459 (7.350-7.450); ABG TOTAL HEMOGLOBIN 7.2 G/dL (12.0-16.0); ALLEN TEST, BLOOD GAS Positive; FRACTIONATED INSPIRED OXYGEN 30.0 % (21-100.0); O2 DEVICE,BLOOD GAS VENTILATOR (ROOM AIR); PO2, ARTERIAL BG 74.1 mmHg (83.0-108.0); SITE, BLOOD GAS RT RADIAL; SOURCE, BLOOD GAS ARTERIAL; TEMPERATURE, FAHRENHEIT, BG 97.8 FAHREN (96.0-98.6); VENT MODE, BG CPAP (ROOM AIR)
[2025-05-27 12:50] LABS: CPAP, BG 0 cm H2O; PATIENT RATE, BG 13.0 min.; PRESSURE SUPPORT, BG 8 cm H2O; SPONTANEOUS VT, BG 550 ml
[2025-05-27 12:55] LABS: GLUCOMETER DEV NAME(LOC) ICUN.6; GLUCOSE,POINT OF CARE 202 MG/DL (70-110)
[2025-05-27] MEDS ORDERED: SODIUM CHLORIDE 0.9% 250 ML IV ONE (17:01)
[2025-05-27 21:06] LABS: GLUCOMETER DEV NAME(LOC) ICU.S7; GLUCOSE,POINT OF CARE 220 MG/DL (70-110)
[2025-05-27 23:56] LABS: GLUCOMETER DEV NAME(LOC) ICU.S7; GLUCOSE,POINT OF CARE 254 MG/DL (70-110)
[2025-05-28] VITALS (15 sets, daily range): BP systolic 98–145; BP diastolic 42–73; PULSE 53–99; RESP 2–28; TEMP 97.8–98.9; O2SAT 95–100
[2025-05-28] MEDS ORDERED: SODIUM CHLORIDE 0.9% 250 ML IV ONE ×2 (03:38→11:27)
[2025-05-28 05:36] LABS: GLUCOMETER DEV NAME(LOC) ICUN.6; GLUCOSE,POINT OF CARE 199 MG/DL (70-110)
[2025-05-28 06:15] LABS: PLATELET COUNT (AUTO) 379 K/uL (150-450); RED BLOOD CELL COUNT(AUTO) 2.95 MIL/uL (4.00-5.20); RED CELL DISTRIBUTION WIDTH 15.5 % (11.5-14.5); WHITE BLOOD COUNT (AUTO) 11.0 K/uL (4.5-11.0)
[2025-05-28 06:38] LABS: ASPARTATE AMINOTRANSFERASE 15.0 U/L (15-37); SODIUM SERUM 135.0 mmol/L (136-145); TOTAL PROTEIN, SERUM 7.4 g/dL (6.4-8.2); UREA NITROGEN, BLOOD 48.0 mg/dL (7-18)
[2025-05-28 06:51] LABS: CALCIUM, TOTAL 9.3 mg/dL (8.8-10.5); CREATININE 2.19 mg/dL (0.60-1.30); GLOMERULAR FILTR. RATE CALC 21.0 mL/min (>60); GLUCOSE,RANDOM 225.0 mg/dL (70-110); PHOSPHORUS 4.9 mg/dL (2.5-4.9)
[2025-05-28] MEDS: POTASSIUM CHL 10 MEQ/WATER 50 ML IV SCH (09:07)
[2025-05-28] MEDS: PANTOPRAZOLE SODIUM 40 MG/VIAL IVP SCH (10:08)
[2025-05-28 11:57] LABS: ABG BASE EXCESS -1.4 mmol/L (-2.0-3.0); ABG CARBOXYHEMOGLOBIN 0.7 % (0.5-1.5); ABG HCO3 23.8 mmol/L (21.0-28.0); ABG METHEMOGLOBIN 0.1 % (0.0-1.5); ABG OXYGEN CONTENT 12.2 mL/dL (15.0-23.0); ABG OXYGEN SATURATION 97.3 % (94.0-98.0); ABG OXYHEMOGLOBIN 96.5 % (94.0-98.0); ABG PCO2 30 mmHg (32.0-45.0); ABG PH 7.485 (7.350-7.450); ABG TOTAL HEMOGLOBIN 8.9 G/dL (12.0-16.0); FRACTIONATED INSPIRED OXYGEN 30.0 % (21-100.0); PO2, ARTERIAL BG 90.5 mmHg (83.0-108.0); SOURCE, BLOOD GAS ARTERIAL; TEMPERATURE, FAHRENHEIT, BG 98.9 FAHREN (96.0-98.6)
[2025-05-28 11:58] LABS: ALLEN TEST, BLOOD GAS Positive; O2 DEVICE,BLOOD GAS VENTILATOR (ROOM AIR); PEEP,BG 0 cm H2O; SITE, BLOOD GAS LFT RADIAL; VENT MODE, BG CPAP (ROOM AIR)
[2025-05-28 11:59] LABS: PATIENT RATE, BG 17.0 min.; PRESSURE SUPPORT, BG 8 cm H2O; SPONTANEOUS VT, BG 570 ml
[2025-05-28 12:56] LABS: GLUCOMETER DEV NAME(LOC) ICU.S7; GLUCOSE,POINT OF CARE 262 MG/DL (70-110)
[2025-05-28 14:51] LABS: CALCIUM, TOTAL 9.1 mg/dL (8.8-10.5); CREATININE 2.37 mg/dL (0.60-1.30); GLOMERULAR FILTR. RATE CALC 19.0 mL/min (>60); GLUCOSE,RANDOM 249.0 mg/dL (70-110); SODIUM SERUM 136.0 mmol/L (136-145); UREA NITROGEN, BLOOD 53.0 mg/dL (7-18)
[2025-05-28 18:30] LABS: GLUCOMETER DEV NAME(LOC) ICU.S7; GLUCOSE,POINT OF CARE 252 MG/DL (70-110)
[2025-05-28 20:09] LABS: CALCIUM, TOTAL 9.2 mg/dL (8.8-10.5); CREATININE 2.27 mg/dL (0.60-1.30); GLOMERULAR FILTR. RATE CALC 20.0 mL/min (>60); GLUCOSE,RANDOM 262.0 mg/dL (70-110); SODIUM SERUM 135.0 mmol/L (136-145); UREA NITROGEN, BLOOD 52.0 mg/dL (7-18)
[2025-05-29] VITALS (14 sets, daily range): BP systolic 95–143; BP diastolic 51–72; PULSE 56–117; RESP 12–28; TEMP 96.7–98.8; O2SAT 96–100
[2025-05-29 05:57] LABS: PLATELET COUNT (AUTO) 355 K/uL (150-450); RED BLOOD CELL COUNT(AUTO) 2.92 MIL/uL (4.00-5.20); RED CELL DISTRIBUTION WIDTH 16.2 % (11.5-14.5); WHITE BLOOD COUNT (AUTO) 7.1 K/uL (4.5-11.0)
[2025-05-29 06:11] LABS: ASPARTATE AMINOTRANSFERASE 14.0 U/L (15-37); CALCIUM, TOTAL 9.1 mg/dL (8.8-10.5); CREATININE 2.34 mg/dL (0.60-1.30); GLOMERULAR FILTR. RATE CALC 20.0 mL/min (>60); GLUCOSE,RANDOM 279.0 mg/dL (70-110); PHOSPHORUS 4.1 mg/dL (2.5-4.9); SODIUM SERUM 134.0 mmol/L (136-145); TOTAL PROTEIN, SERUM 7.4 g/dL (6.4-8.2); UREA NITROGEN, BLOOD 51.0 mg/dL (7-18)
[2025-05-29 07:56] LABS: GLUCOMETER DEV NAME(LOC) ICUN.6; GLUCOSE,POINT OF CARE 256 MG/DL (70-110)
[2025-05-29 07:56] LABS: GLUCOMETER DEV NAME(LOC) ICUN.6; GLUCOSE,POINT OF CARE 229 MG/DL (70-110)
[2025-05-29 08:00] LABS: GLUCOMETER DEV NAME(LOC) ICU.S7; GLUCOSE,POINT OF CARE 202 MG/DL (70-110)
[2025-05-29] MEDS: POTASSIUM CHL 10 MEQ/WATER 50 ML IV SCH (08:35)
[2025-05-29] MEDS ORDERED: SODIUM CHLORIDE 0.9% 250 ML IV ONE (09:23)
[2025-05-29 12:00] LABS: ABG A-A DIFF O2 97.1 mmHg (10-20.0); ABG BASE EXCESS -2.4 mmol/L (-2.0-3.0); ABG CARBOXYHEMOGLOBIN 0.1 % (0.5-1.5); ABG HCO3 22.8 mmol/L (21.0-28.0); ABG METHEMOGLOBIN 0.3 % (0.0-1.5); ABG OXYGEN CONTENT 12.9 mL/dL (15.0-23.0); ABG OXYGEN SATURATION 95.2 % (94.0-98.0); ABG OXYHEMOGLOBIN 94.8 % (94.0-98.0); ABG PCO2 34 mmHg (32.0-45.0); ABG PH 7.426 (7.350-7.450); ABG TOTAL HEMOGLOBIN 9.6 G/dL (12.0-16.0); ALLEN TEST, BLOOD GAS Positive; CPAP, BG 0 cm H2O; FRACTIONATED INSPIRED OXYGEN 30.0 % (21-100.0); O2 DEVICE,BLOOD GAS VENTILATOR (ROOM AIR); PATIENT RATE, BG 16.0 min.; PO2, ARTERIAL BG 76.6 mmHg (83.0-108.0); PRESSURE SUPPORT, BG 8 cm H2O; SITE, BLOOD GAS RT RADIAL; SOURCE, BLOOD GAS ARTERIAL; SPONTANEOUS VT, BG 450 ml; TEMPERATURE, FAHRENHEIT, BG 98.6 FAHREN (96.0-98.6); VENT MODE, BG CPAP (ROOM AIR)
[2025-05-29 12:47] LABS: CALCIUM, TOTAL 8.9 mg/dL (8.8-10.5); CREATININE 2.05 mg/dL (0.60-1.30); GLOMERULAR FILTR. RATE CALC 23.0 mL/min (>60); GLUCOSE,RANDOM 298.0 mg/dL (70-110); SODIUM SERUM 134.0 mmol/L (136-145); UREA NITROGEN, BLOOD 55.0 mg/dL (7-18)
[2025-05-29 12:50] LABS: GLUCOMETER DEV NAME(LOC) ICUN.6; GLUCOSE,POINT OF CARE 262 MG/DL (70-110)
[2025-05-29 17:50] LABS: GLUCOMETER DEV NAME(LOC) ICUN.6; GLUCOSE,POINT OF CARE 240 MG/DL (70-110)
[2025-05-29 20:46] LABS: GLUCOMETER DEV NAME(LOC) ICU.S7; GLUCOSE,POINT OF CARE 286 MG/DL (70-110)
[2025-05-30] VITALS (12 sets, daily range): BP systolic 105–156; BP diastolic 53–83; PULSE 69–124; RESP 16–31; TEMP 97.6–99.7; O2SAT 96–100
[2025-05-30 06:06] LABS: GLUCOMETER DEV NAME(LOC) ICU.S7; GLUCOSE,POINT OF CARE 259 MG/DL (70-110)
[2025-05-30 06:13] LABS: CALCIUM, TOTAL 9.2 mg/dL (8.8-10.5); CREATININE 1.99 mg/dL (0.60-1.30); GLOMERULAR FILTR. RATE CALC 24.0 mL/min (>60); GLUCOSE,RANDOM 278.0 mg/dL (70-110); SODIUM SERUM 136.0 mmol/L (136-145); UREA NITROGEN, BLOOD 56.0 mg/dL (7-18)
[2025-05-30 06:15] LABS: PHOSPHORUS 3.5 mg/dL (2.5-4.9)
[2025-05-30 06:19] LABS: PLATELET COUNT (AUTO) 386 K/uL (150-450); RED BLOOD CELL COUNT(AUTO) 2.89 MIL/uL (4.00-5.20); RED CELL DISTRIBUTION WIDTH 16.4 % (11.5-14.5); WHITE BLOOD COUNT (AUTO) 9.8 K/uL (4.5-11.0)
[2025-05-30 07:35] LABS: GLUCOMETER DEV NAME(LOC) ICUN.6; GLUCOSE,POINT OF CARE 277 MG/DL (70-110)
[2025-05-30 07:50] LABS: BAND NEUTROPHILS % (MANUAL) 3 % (0-5); LYMPHOCYTES % (MANUAL) 15 % (22-44); SEGMENTED NEUTROPHILS % 82 % (40-70)
[2025-05-30 07:51] LABS: RBC MORPHOLOGY COMMENT ABNORMAL RBC MORPH
[2025-05-30] MEDS ORDERED: SODIUM CHLORIDE 0.9% 250 ML IV ONE (09:35)
[2025-05-30 12:45] LABS: GLUCOMETER DEV NAME(LOC) ICU.S7; GLUCOSE,POINT OF CARE 269 MG/DL (70-110)
[2025-05-30] MEDS ORDERED: DICLOFENAC SODIUM 1% 100 GM GEL [2GM] TP PRN (14:00)
[2025-05-30] MEDS ORDERED: NALOXONE HCL 1 MG/ML 2 ML SYRINGE IVP PRN (14:00)
[2025-05-30 15:36] LABS: ABG BASE EXCESS -3.6 mmol/L (-2.0-3.0); ABG CARBOXYHEMOGLOBIN 0.3 % (0.5-1.5); ABG HCO3 22.0 mmol/L (21.0-28.0); ABG METHEMOGLOBIN 0.3 % (0.0-1.5); ABG OXYGEN CONTENT 12.8 mL/dL (15.0-23.0); ABG OXYGEN SATURATION 96.6 % (94.0-98.0); ABG OXYHEMOGLOBIN 96.0 % (94.0-98.0); ABG PCO2 31 mmHg (32.0-45.0); ABG PH 7.445 (7.350-7.450); ABG TOTAL HEMOGLOBIN 9.4 G/dL (12.0-16.0); FRACTIONATED INSPIRED OXYGEN 30.0 % (21-100.0); PO2, ARTERIAL BG 88.5 mmHg (83.0-108.0); SOURCE, BLOOD GAS ARTERIAL; TEMPERATURE, FAHRENHEIT, BG 98.7 FAHREN (96.0-98.6)
[2025-05-30 15:37] LABS: ABG A-A DIFF O2 89.5 mmHg (10-20.0); O2 DEVICE,BLOOD GAS VENTILATOR (ROOM AIR); PATIENT RATE, BG 26.0 min.; PEEP,BG 5 cm H2O; PRESSURE SUPPORT, BG 5 cm H2O; SITE, BLOOD GAS RT BRACHIAL; SPONTANEOUS VT, BG 493 ml; VENT MODE, BG Press. Support Vent. (ROOM AIR)
[2025-05-30] MEDS: ACETAMINOPHEN 650 MG/20.3 ML SOLUTION UDCUP GT SCH (15:38)
[2025-05-30] MEDS: LIDOCAINE 5% TRANSDERMAL PATCH TD SCH ×2 (15:38→15:40)
[2025-05-30 18:51] LABS: GLUCOMETER DEV NAME(LOC) ICU.S7; GLUCOSE,POINT OF CARE 306 MG/DL (70-110)
[2025-05-30] MEDS: -LIDODERM PATCH NOTE- MISC SCH (21:00)
[2025-05-31] VITALS (7 sets, daily range): BP systolic 130–174; BP diastolic 53–89; PULSE 67–97; RESP 16–22; TEMP 97–98.6; O2SAT 95–100
[2025-05-31 00:21] LABS: GLUCOMETER DEV NAME(LOC) ICUN.6; GLUCOSE,POINT OF CARE 241 MG/DL (70-110)
[2025-05-31 06:09] LABS: ASPARTATE AMINOTRANSFERASE 10.0 U/L (15-37); CALCIUM, TOTAL 9.1 mg/dL (8.8-10.5); CREATININE 1.9 mg/dL (0.60-1.30); GLOMERULAR FILTR. RATE CALC 25.0 mL/min (>60); GLUCOSE,RANDOM 261.0 mg/dL (70-110); SODIUM SERUM 139.0 mmol/L (136-145); TOTAL PROTEIN, SERUM 7.0 g/dL (6.4-8.2); UREA NITROGEN, BLOOD 56.0 mg/dL (7-18)
[2025-05-31 06:21] LABS: GLUCOMETER DEV NAME(LOC) ICU.S7; GLUCOSE,POINT OF CARE 243 MG/DL (70-110)
[2025-05-31 14:07] LABS: GLUCOMETER DEV NAME(LOC) ICU.S7; GLUCOSE,POINT OF CARE 253 MG/DL (70-110)
[2025-05-31 15:50] LABS: GLUCOMETER DEV NAME(LOC) ICUN.6; GLUCOSE,POINT OF CARE 277 MG/DL (70-110)
[2025-05-31 19:36] LABS: GLUCOMETER DEV NAME(LOC) 5S.1E; GLUCOSE,POINT OF CARE 228 MG/DL (70-110)
[2025-05-31] MEDS ORDERED: SODIUM CHLORIDE 0.9% 500 ML IV ONE (20:49)
[2025-06-01] VITALS (9 sets, daily range): BP systolic 126–176; BP diastolic 54–65; PULSE 89–109; RESP 16–20; TEMP 98.1–98.6; O2SAT 95–100
[2025-06-01 04:16] LABS: GLUCOMETER DEV NAME(LOC) 5S.1E; GLUCOSE,POINT OF CARE 162 MG/DL (70-110)
[2025-06-01 07:00] LABS: PLATELET COUNT (AUTO) 400 K/uL (150-450); RED BLOOD CELL COUNT(AUTO) 3.43 MIL/uL (4.00-5.20); RED CELL DISTRIBUTION WIDTH 17.8 % (11.5-14.5); WHITE BLOOD COUNT (AUTO) 7.8 K/uL (4.5-11.0)
[2025-06-01 07:39] LABS: CALCIUM, TOTAL 9.4 mg/dL (8.8-10.5); CREATININE 1.95 mg/dL (0.60-1.30); GLOMERULAR FILTR. RATE CALC 24.0 mL/min (>60); GLUCOSE,RANDOM 268.0 mg/dL (70-110); SODIUM SERUM 138.0 mmol/L (136-145); UREA NITROGEN, BLOOD 54.0 mg/dL (7-18)
[2025-06-01 07:41] LABS: PHOSPHORUS 2.3 mg/dL (2.5-4.9)
[2025-06-01] MEDS ORDERED: SODIUM CHLORIDE 0.9% 250 ML IV ONE (08:34)
[2025-06-01 10:21] LABS: GLUCOMETER DEV NAME(LOC) 5N.2C; GLUCOSE,POINT OF CARE 219 MG/DL (70-110)
[2025-06-01] MEDS ORDERED: POTASSIUM CHLORIDE 10% 40 MEQ/30 ML LIQUID UDCUP GT ONE (10:45)
[2025-06-01] MEDS: POTASSIUM CHLORIDE 10% 40 MEQ/30 ML LIQUID UDCUP NG ONE (12:22)
[2025-06-01] MEDS: SODIUM,POTASSIUM PHOSPHATES POWDER PACKET PO SCH (12:22)
[2025-06-01] MEDS: SODIUM PHOS,M-BASIC-D-BASIC 20 MMOL in DEXTROSE 5%-WATER 150 ML IV ONE (14:06)
[2025-06-01 14:11] LABS: GLUCOMETER DEV NAME(LOC) 5S.1E; GLUCOSE,POINT OF CARE 213 MG/DL (70-110)
[2025-06-01 22:00] LABS: GLUCOMETER DEV NAME(LOC) 5S.1E; GLUCOSE,POINT OF CARE 164 MG/DL (70-110)
[2025-06-01 23:01] LABS: GLUCOMETER DEV NAME(LOC) 5N.2C; GLUCOSE,POINT OF CARE 215 MG/DL (70-110)
[2025-06-02] VITALS (16 sets, daily range): BP systolic 124–203; BP diastolic 53–99; PULSE 96–141; RESP 18–41; TEMP 98.4–99.8; O2SAT 91–99
[2025-06-02] MEDS: MORPHINE SULFATE 4 MG/ML SYRINGE IVP PRN (03:45)
[2025-06-02 06:30] LABS: GLUCOMETER DEV NAME(LOC) 5N.2C; GLUCOSE,POINT OF CARE 204 MG/DL (70-110)
[2025-06-02 06:47] LABS: PLATELET COUNT (AUTO) 357 K/uL (150-450); RED BLOOD CELL COUNT(AUTO) 3.15 MIL/uL (4.00-5.20); RED CELL DISTRIBUTION WIDTH 18.8 % (11.5-14.5); WHITE BLOOD COUNT (AUTO) 11.8 K/uL (4.5-11.0)
[2025-06-02 07:03] LABS: ASPARTATE AMINOTRANSFERASE 17.0 U/L (15-37); C-REACTIVE PROTEIN QUANT 4.79 mg/dL (0.00-0.30); CALCIUM, TOTAL 9.1 mg/dL (8.8-10.5); CREATININE 1.7 mg/dL (0.60-1.30); GLOMERULAR FILTR. RATE CALC 28.0 mL/min (>60); GLUCOSE,RANDOM 228.0 mg/dL (70-110); SODIUM SERUM 139.0 mmol/L (136-145); TOTAL PROTEIN, SERUM 6.8 g/dL (6.4-8.2); UREA NITROGEN, BLOOD 48.0 mg/dL (7-18)
[2025-06-02] MEDS: POTASSIUM CHLORIDE 20 MEQ ER TABLET PO PRN (09:09)
[2025-06-02] MEDS ORDERED: POTASSIUM CHLORIDE 20 MEQ ER TABLET NG PRN (10:15)
[2025-06-02] MEDS: POTASSIUM CHLORIDE 10% 40 MEQ/30 ML LIQUID UDCUP NG ONE (10:15)
[2025-06-02 12:56] LABS: GLUCOMETER DEV NAME(LOC) 5S.1E; GLUCOSE,POINT OF CARE 176 MG/DL (70-110)
[2025-06-02] MEDS: LORazepam 2 MG/ML VIAL IVP ONE (13:26)
[2025-06-02 17:25] LABS: GLUCOMETER DEV NAME(LOC) 5S.1E; GLUCOSE,POINT OF CARE 190 MG/DL (70-110)
[2025-06-02] MEDS: AMPICILLIN SODIUM/SULBACTAM NA 3 GM in SODIUM CHLORIDE 0.9% 100 ML IV SCH (17:48)
[2025-06-02 18:51] LABS: ABG BASE EXCESS -3.5 mmol/L (-2.0-3.0); ABG CARBOXYHEMOGLOBIN 0.5 % (0.5-1.5); ABG HCO3 22.1 mmol/L (21.0-28.0); ABG METHEMOGLOBIN 0.3 % (0.0-1.5); ABG OXYGEN CONTENT 11.8 mL/dL (15.0-23.0); ABG OXYGEN SATURATION 91.7 % (94.0-98.0); ABG OXYHEMOGLOBIN 91.0 % (94.0-98.0); ABG PCO2 28 mmHg (32.0-45.0); ABG PH 7.476 (7.350-7.450); ABG TOTAL HEMOGLOBIN 9.2 G/dL (12.0-16.0); ALLEN TEST, BLOOD GAS Positive; PO2, ARTERIAL BG 57.9 mmHg (83.0-108.0); SITE, BLOOD GAS LFT RADIAL; SOURCE, BLOOD GAS ARTERIAL; TEMPERATURE, FAHRENHEIT, BG 98.5 FAHREN (96.0-98.6)
[2025-06-02 18:52] LABS: FRACTIONATED INSPIRED OXYGEN 21.0 % (21-100.0); O2 DEVICE,BLOOD GAS ROOM AIR (ROOM AIR)
[2025-06-02 18:59] LABS: FLOW, BLOOD GAS 0.00 L/min (0.00-15.00)
[2025-06-02 21:26] LABS: GLUCOMETER DEV NAME(LOC) 5S.1E; GLUCOSE,POINT OF CARE 168 MG/DL (70-110)
[2025-06-02 21:26] LABS: GLUCOMETER DEV NAME(LOC) 5S.1E; GLUCOSE,POINT OF CARE 170 MG/DL (70-110)
[2025-06-02 22:26] LABS: GLUCOMETER DEV NAME(LOC) ICU.S7; GLUCOSE,POINT OF CARE 162 MG/DL (70-110)
[2025-06-02] MEDS: ACETAMINOPHEN 650 MG RECTAL SUPPOSITORY PR ONE (22:30)
[2025-06-02 23:17] LABS: ABG BASE EXCESS -5.2 mmol/L (-2.0-3.0); ABG CARBOXYHEMOGLOBIN 0.0 % (0.5-1.5); ABG HCO3 20.9 mmol/L (21.0-28.0); ABG METHEMOGLOBIN 0.0 % (0.0-1.5); ABG OXYGEN CONTENT 13.2 mL/dL (15.0-23.0); ABG OXYGEN SATURATION 94.2 % (94.0-98.0); ABG OXYHEMOGLOBIN 94.2 % (94.0-98.0); ABG PCO2 27 mmHg (32.0-45.0); ABG PH 7.453 (7.350-7.450); ABG TOTAL HEMOGLOBIN 9.9 G/dL (12.0-16.0); FRACTIONATED INSPIRED OXYGEN 35.0 % (21-100.0); PO2, ARTERIAL BG 72.5 mmHg (83.0-108.0); SITE, BLOOD GAS RT BRACHIAL; SOURCE, BLOOD GAS ARTERIAL; TEMPERATURE, FAHRENHEIT, BG 99.5 FAHREN (96.0-98.6)
[2025-06-02 23:18] LABS: ABG A-A DIFF O2 144.8 mmHg (10-20.0); ALLEN TEST, BLOOD GAS POS; O2 DEVICE,BLOOD GAS CANNULA (ROOM AIR)
[2025-06-03] VITALS (15 sets, daily range): BP systolic 135–171; BP diastolic 61–84; PULSE 100–131; RESP 20–48; TEMP 97.6–99.4; O2SAT 93–100
[2025-06-03] MEDS ORDERED: SODIUM CHLORIDE 0.9% 500 ML IV ONE (03:46)
[2025-06-03 06:31] LABS: GLUCOMETER DEV NAME(LOC) ICUN.6; GLUCOSE,POINT OF CARE 122 MG/DL (70-110)
[2025-06-03 06:59] LABS: PLATELET COUNT (AUTO) 324 K/uL (150-450); RED BLOOD CELL COUNT(AUTO) 3.00 MIL/uL (4.00-5.20); RED CELL DISTRIBUTION WIDTH 19.9 % (11.5-14.5); WHITE BLOOD COUNT (AUTO) 13.0 K/uL (4.5-11.0)
[2025-06-03 07:13] LABS: CALCIUM, TOTAL 9.2 mg/dL (8.8-10.5); CREATININE 1.68 mg/dL (0.60-1.30); GLOMERULAR FILTR. RATE CALC 29.0 mL/min (>60); GLUCOSE,RANDOM 169.0 mg/dL (70-110); SODIUM SERUM 146.0 mmol/L (136-145); UREA NITROGEN, BLOOD 41.0 mg/dL (7-18)
[2025-06-03 07:31] LABS: PHOSPHORUS 3.8 mg/dL (2.5-4.9)
[2025-06-03] MEDS: CITRIC ACID/SODIUM CITRATE 30 ML SOLUTION UDCUP PO SCH (08:35)
[2025-06-03] MEDS ORDERED: RINGERS SOLUTION,LACTATED 500 ML IV ONE (09:45)
[2025-06-03] MEDS: RINGERS SOLUTION,LACTATED 500 ML IV ONE (10:11)
[2025-06-03] MEDS: SODIUM BICARBONATE 50 MEQ in DEXTROSE 5%-0.45% SODIUM CHL 1,000 ML IV SCH (10:17)
[2025-06-03] MEDS: SODIUM BICARBONATE 50 MEQ in DEXTROSE 5%-WATER 1,000 ML IV SCH (10:45)
[2025-06-03 12:01] LABS: GLUCOMETER DEV NAME(LOC) ICU.S7; GLUCOSE,POINT OF CARE 166 MG/DL (70-110)
[2025-06-03 17:15] LABS: GLUCOMETER DEV NAME(LOC) ICU.S7; GLUCOSE,POINT OF CARE 153 MG/DL (70-110)
[2025-06-03 19:17] LABS: ABG BASE EXCESS -4.4 mmol/L (-2.0-3.0); ABG CARBOXYHEMOGLOBIN 0.3 % (0.5-1.5); ABG HCO3 21.6 mmol/L (21.0-28.0); ABG METHEMOGLOBIN 0.0 % (0.0-1.5); ABG OXYGEN CONTENT 13.5 mL/dL (15.0-23.0); ABG OXYGEN SATURATION 97.8 % (94.0-98.0); ABG OXYHEMOGLOBIN 97.5 % (94.0-98.0); ABG PCO2 27 mmHg (32.0-45.0); ABG PH 7.471 (7.350-7.450); ABG TOTAL HEMOGLOBIN 9.7 G/dL (12.0-16.0); FRACTIONATED INSPIRED OXYGEN 50.0 % (21-100.0); PO2, ARTERIAL BG 106.1 mmHg (83.0-108.0); SOURCE, BLOOD GAS ARTERIAL; TEMPERATURE, FAHRENHEIT, BG 98.6 FAHREN (96.0-98.6)
[2025-06-03 19:18] LABS: ALLEN TEST, BLOOD GAS Positive; FLOW, BLOOD GAS 0.00 L/min (0.00-15.00); O2 DEVICE,BLOOD GAS BIPAP (ROOM AIR); SITE, BLOOD GAS RT RADIAL
[2025-06-03] MEDS ORDERED: SODIUM CHLORIDE 0.9% 250 ML IV ONE (20:45)
[2025-06-03 21:46] LABS: GLUCOMETER DEV NAME(LOC) ICUN.6; GLUCOSE,POINT OF CARE 128 MG/DL (70-110)
[2025-06-04] VITALS (9 sets, daily range): BP systolic 130–152; BP diastolic 58–70; PULSE 99–123; RESP 20–35; TEMP 98.1–99.4; O2SAT 94–99
[2025-06-04 06:23] LABS: PLATELET COUNT (AUTO) 345 K/uL (150-450); RED BLOOD CELL COUNT(AUTO) 2.87 MIL/uL (4.00-5.20); RED CELL DISTRIBUTION WIDTH 19.3 % (11.5-14.5); WHITE BLOOD COUNT (AUTO) 10.0 K/uL (4.5-11.0)
[2025-06-04 06:43] LABS: ASPARTATE AMINOTRANSFERASE 25.0 U/L (15-37); CALCIUM, TOTAL 9.1 mg/dL (8.8-10.5); CREATININE 1.45 mg/dL (0.60-1.30); GLOMERULAR FILTR. RATE CALC 34.0 mL/min (>60); GLUCOSE,RANDOM 198.0 mg/dL (70-110); SODIUM SERUM 146.0 mmol/L (136-145); TOTAL PROTEIN, SERUM 6.9 g/dL (6.4-8.2); UREA NITROGEN, BLOOD 34.0 mg/dL (7-18)
[2025-06-04 07:10] LABS: GLUCOMETER DEV NAME(LOC) ICUN.6; GLUCOSE,POINT OF CARE 176 MG/DL (70-110)
[2025-06-04] MEDS: *CLINICAL-TOTAL PARENTERAL NUTRITION DOSING CLINICAL ONE (10:40)
[2025-06-04] MEDS: FUROSEMIDE 40 MG/4 ML VIAL IVP ONE (11:57)
[2025-06-04] MEDS: AMIODARONE HCL 50 MG/ML 3 ML VIAL IVP SCH (11:58)
[2025-06-04 12:21] LABS: GLUCOMETER DEV NAME(LOC) ICU.S7; GLUCOSE,POINT OF CARE 138 MG/DL (70-110)
[2025-06-04 15:19] LABS: ABG BASE EXCESS -4.0 mmol/L (-2.0-3.0); ABG CARBOXYHEMOGLOBIN 0.6 % (0.5-1.5); ABG HCO3 21.9 mmol/L (21.0-28.0); ABG METHEMOGLOBIN 0.3 % (0.0-1.5); ABG OXYGEN CONTENT 12.2 mL/dL (15.0-23.0); ABG OXYGEN SATURATION 91.5 % (94.0-98.0); ABG OXYHEMOGLOBIN 90.7 % (94.0-98.0); ABG PCO2 24 mmHg (32.0-45.0); ABG PH 7.521 (7.350-7.450); ABG TOTAL HEMOGLOBIN 9.5 G/dL (12.0-16.0); ALLEN TEST, BLOOD GAS Positive; FRACTIONATED INSPIRED OXYGEN 36.0 % (21-100.0); PO2, ARTERIAL BG 57.9 mmHg (83.0-108.0); SITE, BLOOD GAS RT RADIAL; SOURCE, BLOOD GAS ARTERIAL; TEMPERATURE, FAHRENHEIT, BG 98.8 FAHREN (96.0-98.6)
[2025-06-04 15:20] LABS: ABG A-A DIFF O2 171.4 mmHg (10-20.0); FLOW, BLOOD GAS 4.00 L/min (0.00-15.00); O2 DEVICE,BLOOD GAS NASAL CANNULA (ROOM AIR)
[2025-06-04] MEDS: ETOMIDATE 2 MG/ML 10 ML VIAL IVP ONE (15:35)
[2025-06-04] MEDS: ROCURONIUM BROMIDE 10 MG/ML 5 ML VIAL IVP ONE (15:36)
[2025-06-04 17:16] LABS: GLUCOMETER DEV NAME(LOC) ICU.S7; GLUCOSE,POINT OF CARE 178 MG/DL (70-110)
[2025-06-04 20:50] LABS: GLUCOMETER DEV NAME(LOC) ICUN.6; GLUCOSE,POINT OF CARE 146 MG/DL (70-110)
[2025-06-04] MEDS: LINEZOLID 600 MG/ISO-OSM 300 ML IV SCH (23:51)
[2025-06-05] VITALS (7 sets, daily range): BP systolic 116–166; BP diastolic 57–77; PULSE 94–113; RESP 24–47; TEMP 98.7–100.5; O2SAT 90–98
[2025-06-05] MEDS: PIPERACILLIN SODIUM/TAZOBACTAM 2.25 GM in DEXTROSE 5%-WATER 50 ML IV SCH (04:33)
[2025-06-05 06:16] LABS: PLATELET COUNT (AUTO) 340 K/uL (150-450); RED BLOOD CELL COUNT(AUTO) 2.87 MIL/uL (4.00-5.20); RED CELL DISTRIBUTION WIDTH 20.6 % (11.5-14.5); WHITE BLOOD COUNT (AUTO) 11.3 K/uL (4.5-11.0)
[2025-06-05 06:30] LABS: PHOSPHORUS 2.5 mg/dL (2.5-4.9)
[2025-06-05 06:51] LABS: CALCIUM, TOTAL 9.2 mg/dL (8.8-10.5); CREATININE 1.49 mg/dL (0.60-1.30); GLOMERULAR FILTR. RATE CALC 33.0 mL/min (>60); GLUCOSE,RANDOM 232.0 mg/dL (70-110); SODIUM SERUM 144.0 mmol/L (136-145); UREA NITROGEN, BLOOD 27.0 mg/dL (7-18)
[2025-06-05 07:25] LABS: GLUCOMETER DEV NAME(LOC) ICU.S7; GLUCOSE,POINT OF CARE 204 MG/DL (70-110)
[2025-06-05] MEDS ORDERED: SODIUM BICARBONATE [ADULT] 8.4% 50 MEQ/50 ML SYRINGE IVP ONE (10:30)
[2025-06-05 12:40] LABS: GLUCOMETER DEV NAME(LOC) ICUN.6; GLUCOSE,POINT OF CARE 134 MG/DL (70-110)
[2025-06-05] MEDS ORDERED: SODIUM CHLORIDE 0.9% 250 ML IV ONE (13:25)
[2025-06-05] MEDS: POTASSIUM CHL 10 MEQ/WATER 50 ML IV ONE (15:34)
[2025-06-05] MEDS: POTASSIUM CHL 10 MEQ/WATER 50 ML IV SCH (16:55)
[2025-06-05 18:01] LABS: GLUCOMETER DEV NAME(LOC) ICUN.6; GLUCOSE,POINT OF CARE 166 MG/DL (70-110)
[2025-06-05] MEDS: ACETAMINOPHEN 1000 MG/ISO-OSM 100 ML IV PRN (22:10)
[2025-06-05 22:36] LABS: GLUCOMETER DEV NAME(LOC) ICUN.6; GLUCOSE,POINT OF CARE 110 MG/DL (70-110)
[2025-06-06] VITALS (8 sets, daily range): BP systolic 122–147; BP diastolic 52–101; PULSE 85–99; RESP 17–31; TEMP 98.2–99.6; O2SAT 91–99
[2025-06-06 01:06] LABS: GLUCOMETER DEV NAME(LOC) ICUN.6; GLUCOSE,POINT OF CARE 156 MG/DL (70-110)
[2025-06-06 05:45] LABS: GLUCOMETER DEV NAME(LOC) ICUN.6; GLUCOSE,POINT OF CARE 97 MG/DL (70-110)
[2025-06-06 05:51] LABS: PLATELET COUNT (AUTO) 310 K/uL (150-450); RED BLOOD CELL COUNT(AUTO) 2.61 MIL/uL (4.00-5.20); RED CELL DISTRIBUTION WIDTH 20.1 % (11.5-14.5); WHITE BLOOD COUNT (AUTO) 10.0 K/uL (4.5-11.0)
[2025-06-06 06:12] LABS: ASPARTATE AMINOTRANSFERASE 22.0 U/L (15-37); CALCIUM, TOTAL 9.0 mg/dL (8.8-10.5); CREATININE 1.55 mg/dL (0.60-1.30); GLOMERULAR FILTR. RATE CALC 32.0 mL/min (>60); GLUCOSE,RANDOM 108.0 mg/dL (70-110); SODIUM SERUM 144.0 mmol/L (136-145); TOTAL PROTEIN, SERUM 6.9 g/dL (6.4-8.2); UREA NITROGEN, BLOOD 25.0 mg/dL (7-18)
[2025-06-06] MEDS: ACETAMINOPHEN 500 MG/ISO-OSM 50 ML IV ONE (12:51)
[2025-06-06 13:15] LABS: GLUCOMETER DEV NAME(LOC) ICUN.6; GLUCOSE,POINT OF CARE 150 MG/DL (70-110)
[2025-06-06 15:44] LABS: APPEARANCE,URINE CLEAR (CLEAR); GLUCOSE, URINE (UA) NEGATIVE (NEGATIVE); LEUKOCYTE ESTERASE ,URINE NEGATIVE (NEGATIVE); NITRATE,URINE NEGATIVE (NEGATIVE); OCCULT BLOOD,URINE SMALL (NEGATIVE); SPECIFIC GRAVITIY, URINE 1.015 (1.003-1.030)
[2025-06-06 16:14] LABS: INFLUENZA A-RTPCR,COMBO NEGATIVE (NEGATIVE); INFLUENZA B-RTPCR,COMBO NEGATIVE (NEGATIVE); RESPIRATORY SYNCYTIAL VRS-PCR NEGATIVE (NEGATIVE); SARS COVID19 RTPCR, COMBO NEGATIVE (NEGATIVE)
[2025-06-06 19:36] LABS: GLUCOMETER DEV NAME(LOC) ICU.S7; GLUCOSE,POINT OF CARE 76 MG/DL (70-110)
[2025-06-06] MEDS: *CLINICAL-PERIPHERAL PARENTERAL NUTRITION DOSING CLINICAL ONE (19:58)
[2025-06-06] MEDS: PPN SOLUTION 1 EA in AA 4.25%/CALCIUM/LYTES/D5W 1,000 ML IV SCH (21:59)
[2025-06-07] VITALS: BP 138/63; PULSE 90; RESP 19; TEMP 99.2; O2SAT 95
[2025-06-07 00:35] LABS: GLUCOMETER DEV NAME(LOC) ICU.S7; GLUCOSE,POINT OF CARE 80 MG/DL (70-110)
[2025-06-07] MEDS ORDERED: SODIUM CHLORIDE 0.9% 250 ML IV ONE (03:55)
[2025-06-07 04:00] VITALS: BP 133/65; PULSE 95; RESP 21; TEMP 100; O2SAT 93
[2025-06-07 05:01] LABS: GLUCOMETER DEV NAME(LOC) ICUN.6; GLUCOSE,POINT OF CARE 135 MG/DL (70-110)
[2025-06-07 06:20] LABS: GLUCOMETER DEV NAME(LOC) ICUN.6; GLUCOSE,POINT OF CARE 128 MG/DL (70-110)
[2025-06-07 06:31] LABS: PLATELET COUNT (AUTO) 328 K/uL (150-450); RED BLOOD CELL COUNT(AUTO) 2.68 MIL/uL (4.00-5.20); RED CELL DISTRIBUTION WIDTH 21.2 % (11.5-14.5); WHITE BLOOD COUNT (AUTO) 11.4 K/uL (4.5-11.0)
[2025-06-07 06:35] LABS: CALCIUM, TOTAL 8.7 mg/dL (8.8-10.5); CREATININE 1.6 mg/dL (0.60-1.30); GLOMERULAR FILTR. RATE CALC 31.0 mL/min (>60); GLUCOSE,RANDOM 134.0 mg/dL (70-110); SODIUM SERUM 141.0 mmol/L (136-145); UREA NITROGEN, BLOOD 23.0 mg/dL (7-18)
[2025-06-07 08:00] VITALS: BP 148/69; PULSE 87; PULSE 95; RESP 24; TEMP 100.2; O2SAT 96
[2025-06-07 08:01] LABS: PHOSPHORUS 3.6 mg/dL (2.5-4.9)
[2025-06-07 12:00] VITALS: BP 132/51; PULSE 84; PULSE 86; RESP 22; TEMP 99.4; O2SAT 94
[2025-06-07 16:00] VITALS: BP 124/60; PULSE 80; PULSE 81; RESP 20; TEMP 99.2; O2SAT 96
[2025-06-07 19:46] LABS: GLUCOMETER DEV NAME(LOC) ICUN.6; GLUCOSE,POINT OF CARE 162 MG/DL (70-110)
[2025-06-07 19:46] LABS: GLUCOMETER DEV NAME(LOC) ICUN.6; GLUCOSE,POINT OF CARE 132 MG/DL (70-110)
[2025-06-07 20:00] VITALS: BP 145/66; PULSE 103; RESP 20; TEMP 99.5; O2SAT 96
[2025-06-07 20:16] LABS: GLUCOMETER DEV NAME(LOC) ICUN.6; GLUCOSE,POINT OF CARE 107 MG/DL (70-110)
[2025-06-07] MEDS: PPN SOLUTION 1 EA, MVI, ADULT NO.1 WITH VIT K 10 ML, FOLIC ACID 2 MG in AA 4.25%/CALCIU... IV SCH (22:04)
[2025-06-08] VITALS (9 sets, daily range): BP systolic 115–152; BP diastolic 53–84; PULSE 88–103; RESP 15–32; TEMP 98.5–99.6; O2SAT 90–100
[2025-06-08 00:31] LABS: GLUCOMETER DEV NAME(LOC) ICU.S7; GLUCOSE,POINT OF CARE 200 MG/DL (70-110)
[2025-06-08 04:36] LABS: GLUCOMETER DEV NAME(LOC) ICU.S7; GLUCOSE,POINT OF CARE 116 MG/DL (70-110)
[2025-06-08 05:36] LABS: PLATELET COUNT (AUTO) 322 K/uL (150-450); RED BLOOD CELL COUNT(AUTO) 2.64 MIL/uL (4.00-5.20); RED CELL DISTRIBUTION WIDTH 20.6 % (11.5-14.5); WHITE BLOOD COUNT (AUTO) 11.3 K/uL (4.5-11.0)
[2025-06-08 05:49] LABS: CALCIUM, TOTAL 8.8 mg/dL (8.8-10.5); CREATININE 1.48 mg/dL (0.60-1.30); GLOMERULAR FILTR. RATE CALC 33.0 mL/min (>60); GLUCOSE,RANDOM 142.0 mg/dL (70-110); PHOSPHORUS 3.7 mg/dL (2.5-4.9); SODIUM SERUM 137.0 mmol/L (136-145); UREA NITROGEN, BLOOD 25.0 mg/dL (7-18)
[2025-06-08 09:26] LABS: GLUCOMETER DEV NAME(LOC) ICU.S7; GLUCOSE,POINT OF CARE 136 MG/DL (70-110)
[2025-06-08 15:46] LABS: GLUCOMETER DEV NAME(LOC) ICUN.6; GLUCOSE,POINT OF CARE 177 MG/DL (70-110)
[2025-06-08 19:05] LABS: GLUCOMETER DEV NAME(LOC) ICUN.6; GLUCOSE,POINT OF CARE 106 MG/DL (70-110)
[2025-06-09] VITALS (7 sets, daily range): BP systolic 115–161; BP diastolic 56–70; PULSE 90–107; RESP 14–33; TEMP 98.5–100; O2SAT 94–97
[2025-06-09 00:31] LABS: GLUCOMETER DEV NAME(LOC) ICUN.6; GLUCOSE,POINT OF CARE 128 MG/DL (70-110)
[2025-06-09 00:31] LABS: GLUCOMETER DEV NAME(LOC) ICU.S7; GLUCOSE,POINT OF CARE 135 MG/DL (70-110)
[2025-06-09 05:38] LABS: PLATELET COUNT (AUTO) 358 K/uL (150-450); RED BLOOD CELL COUNT(AUTO) 3.10 MIL/uL (4.00-5.20); RED CELL DISTRIBUTION WIDTH 21.6 % (11.5-14.5); WHITE BLOOD COUNT (AUTO) 12.4 K/uL (4.5-11.0)
[2025-06-09 05:55] LABS: ASPARTATE AMINOTRANSFERASE 22.0 U/L (15-37); CALCIUM, TOTAL 9.0 mg/dL (8.8-10.5); CREATININE 1.42 mg/dL (0.60-1.30); GLOMERULAR FILTR. RATE CALC 35.0 mL/min (>60); GLUCOSE,RANDOM 99.0 mg/dL (70-110); PHOSPHORUS 4.0 mg/dL (2.5-4.9); SODIUM SERUM 136.0 mmol/L (136-145); TOTAL PROTEIN, SERUM 8.0 g/dL (6.4-8.2); UREA NITROGEN, BLOOD 25.0 mg/dL (7-18)
[2025-06-09 08:16] LABS: GLUCOMETER DEV NAME(LOC) ICUN.6; GLUCOSE,POINT OF CARE 74 MG/DL (70-110)
[2025-06-09] MEDS: LORazepam 2 MG/ML VIAL IVP PRN (12:48)
[2025-06-09 16:21] LABS: GLUCOMETER DEV NAME(LOC) ICU.S7; GLUCOSE,POINT OF CARE 132 MG/DL (70-110)
[2025-06-09 18:31] LABS: GLUCOMETER DEV NAME(LOC) ICU.S7; GLUCOSE,POINT OF CARE 100 MG/DL (70-110)
[2025-06-09 20:21] LABS: GLUCOMETER DEV NAME(LOC) ICU.S7; GLUCOSE,POINT OF CARE 122 MG/DL (70-110)
== END 2025-06-09 20:30 | DRG 720 ==
LOC: EMS 10:20 → EDH 14:09 → 5N 16:04 → ICU 05-15 06:59 → 5S 05-16 06:45 → ICU 05-18 01:00 → 5S 05-31 17:28 → ICU 06-02 20:40
PROVIDERS: ADMIT Hospitalist; ATTEND Hospitalist
PROC: 5A0935A Assistance with Respiratory Ventilation, Less than 24 Consecutive Hours, High Flow/Velocity Cannula (ICD-10-PCS; 2025-05-15)
PROC: 05HB33Z Insertion of Infusion Device into Right Basilic Vein, Percutaneous Approach (ICD-10-PCS; 2025-05-16)
PROC: B54MZZA Ultrasonography of Right Upper Extremity Veins, Guidance (ICD-10-PCS; 2025-05-16)
PROC: 0BH17EZ Insertion of Endotracheal Airway into Trachea, Via Natural or Artificial Opening (ICD-10-PCS; principal; 2025-05-18)
PROC: 5A1955Z Respiratory Ventilation, Greater than 96 Consecutive Hours (ICD-10-PCS; 2025-05-18)
PROC: 5A0935A Assistance with Respiratory Ventilation, Less than 24 Consecutive Hours, High Flow/Velocity Cannula (ICD-10-PCS; 2025-05-18)
PROC: 05HD33Z Insertion of Infusion Device into Right Cephalic Vein, Percutaneous Approach (ICD-10-PCS; 2025-05-22)
PROC: B54MZZA Ultrasonography of Right Upper Extremity Veins, Guidance (ICD-10-PCS; 2025-05-22)
PROC: B24BZZ4 Ultrasonography of Heart with Aorta, Transesophageal (ICD-10-PCS; 2025-05-27)
PROC: 30233N1 Transfusion of Nonautologous Red Blood Cells into Peripheral Vein, Percutaneous Approach (ICD-10-PCS; 2025-05-27)
PROC: 5A09357 Assistance with Respiratory Ventilation, Less than 24 Consecutive Hours, Continuous Positive Airway Pressure (ICD-10-PCS; 2025-06-03)
PROC: 5A0945A Assistance with Respiratory Ventilation, 24-96 Consecutive Hours, High Flow/Velocity Cannula (ICD-10-PCS; 2025-06-04)
DX: A41.01 Sepsis due to Methicillin susceptible Staphylococcus aureus (principal); R65.21 Severe sepsis with septic shock; N17.0 Acute kidney failure with tubular necrosis; G06.1 Intraspinal abscess and granuloma; J96.01 Acute respiratory failure with hypoxia; J69.0 Pneumonitis due to inhalation of food and vomit; M46.26 Osteomyelitis of vertebra, lumbar region; J90 Pleural effusion, not elsewhere classified; E46 Unspecified protein-calorie malnutrition; E87.0 Hyperosmolality and hypernatremia; N18.4 Chronic kidney disease, stage 4 (severe); D64.9 Anemia, unspecified; E11.22 Type 2 diabetes mellitus with diabetic chronic kidney disease; E87.20 Acidosis, unspecified; L89.519 Pressure ulcer of right ankle, unspecified stage; E11.65 Type 2 diabetes mellitus with hyperglycemia; F03.90 Unspecified dementia, unspecified severity, without behavioral disturbance, psychotic disturbance, mood disturbance, and anxiety; I12.9 Hypertensive chronic kidney disease with stage 1 through stage 4 chronic kidney disease, or unspecified chronic kidney disease; I95.9 Hypotension, unspecified; E87.6 Hypokalemia; N39.0 Urinary tract infection, site not specified; B95.61 Methicillin susceptible Staphylococcus aureus infection as the cause of diseases classified elsewhere; E11.69 Type 2 diabetes mellitus with other specified complication; M46.46 Discitis, unspecified, lumbar region; E88.09 Other disorders of plasma-protein metabolism, not elsewhere classified; M48.061 Spinal stenosis, lumbar region without neurogenic claudication; E83.42 Hypomagnesemia; J38.4 Edema of larynx; M19.90 Unspecified osteoarthritis, unspecified site; R31.9 Hematuria, unspecified; E86.0 Dehydration; M89.8X8 Other specified disorders of bone, other site; M84.58XA Pathological fracture in neoplastic disease, other specified site, initial encounter for fracture; R80.9 Proteinuria, unspecified; Z20.822 Contact with and (suspected) exposure to COVID-19; E04.9 Nontoxic goiter, unspecified; G89.29 Other chronic pain; I48.0 Paroxysmal atrial fibrillation; M80.08XA Age-related osteoporosis with current pathological fracture, vertebra(e), initial encounter for fracture; J84.10 Pulmonary fibrosis, unspecified; Z59.12 Inadequate housing utilities; Z79.899 Other long term (current) drug therapy
CPT/HCPCS: 36245; 36569; 70450; 70490; 71045; 71046; 71250; 72141; 72146; 72148; 72170; 74230; 76770; 76937; 80048; 80053; 80076; 80202; 81001; 81002; 82009; 82040; 82728; 82805; 82962; 83036; 83540; 83550; 83605; 83735; 84100; 84132; 84145; 85007; 85014; 85018; 85025; 85027; 85379; 85610; 85730; 86140; 86850; 86900; 86901; 86923; 87040; 87070; 87077; 87081; 87086; 87186; 87205; 87324; 87449; 87637; 87804; 92526; 92610; 93005; 93306; 93312; 93970; 94002; 94003; 94640; 94660; 94760; 96361; 96365; 99291; G0238; J0131; J0282; J0295; J0360; J0696; J1160; J1644; J1815; J1938; J2020; J2060; J2270; J2370; J2470; J2543; J2704; J3010; J3475; J3480; J3490; J7030; J7040; J7050; J7060; J7120; P9016; P9046; 36415-L1; 36415-TC; 73552-LT; 82803-TC; J7613; X7700